=== PATIENT | female | born 1945 | race Two or more races ===

== ENCOUNTER 2022-05-21 16:43 | Outpatient (REF) | payer MEDICARE, MEDICAID, SELFPAY ==
--- NOTE | ~2022-05-21 | CT_ITS ---
EXAMINATION: CT HEAD WITHOUT CONTRAST CLINICAL INFORMATION: 76-year-old with headache and repeated falls. COMPARISON: None TECHNIQUE: Contiguous axial imaging was performed from the skull base to vertex without intravenous administration of contrast. This CT examination was performed using dose optimization techniques as appropriate, variously including the following: *Automated exposure control *Adjustment of mA and/or kV according to patient size (this includes techniques or standardized protocols for targeted exams where dose is matched to indication/reason for exam; i.e. extremities or head) *Use of iterative reconstruction technique DLP: 708 mGy-cm FINDINGS: The brain is normal in morphology and attenuation. Bellamy-white matter differentiation is well maintained. No acute territorial infarct, hemorrhage, extra-axial fluid collection, space-occupying process or mass effect. No definite disproportionate global or regional brain parenchymal volume loss within the limitations of a qualitative assessment. The ventricular system and subarachnoid spaces are within normal limits without hydrocephalus. Bony structures appear intact. The mastoids and middle ear cavities are unopacified and the visualized paranasal sinuses are clear. Minor calcifications of the carotid siphons noted bilaterally. Visualized orbital structures are within normal limits. Partially empty sella, which is a normal variant. Visualized extracranial soft tissue structures appear grossly unremarkable. CT/CT head/brain wo IV con IMPRESSION: Normal noncontrast CT of the brain. No intracranial traumatic sequelae.
== END 2022-05-21 16:44 | disposition home or self-care (01) ==
LOC: HO.CT 16:43
PROVIDERS: PCP Internal Medicine Geriatric Medicine; Visit Provider Internal Medicine Geriatric Medicine
DX: R51.9 Headache, unspecified (principal); R29.6 Repeated falls
CPT/HCPCS: 70450

== ENCOUNTER 2022-08-25 10:05 | Outpatient (REF) | payer OTHER, SELFPAY ==
--- NOTE | 2022-08-25 10:15 | EMG_ITS ---
Please see scanned EMG / Nerve Conduction Report. MTDD
== END 2022-08-25 10:06 | disposition home or self-care (01) ==
LOC: HO.NEURO 10:05
PROVIDERS: PCP Internal Medicine Geriatric Medicine; Visit Provider Internal Medicine Geriatric Medicine
DX: M54.12 Radiculopathy, cervical region (principal); M54.2 Cervicalgia
CPT/HCPCS: 95885; 95910

== ENCOUNTER 2023-01-16 11:10 | Emergency (ER) | payer OTHER, SELFPAY ==
--- NOTE | ~2023-01-16 | CT_ITS ---
EXAMINATION: CT ABDOMEN AND PELVIS WITHOUT CONTRAST CLINICAL INFORMATION: Bilateral flank pain COMPARISON: None available. TECHNIQUE: Multidetector volumetric imaging was performed from the superior aspect of the liver through the pubic symphysis. Sagittal and coronal reformatted images were obtained on the technologist's workstation. This CT examination was performed using dose optimization techniques as appropriate, variously including the following: *Automated exposure control *Adjustment of mA and/or kV according to patient size (this includes techniques or standardized protocols for targeted exams where dose is matched to indication/reason for exam; i.e. extremities or head) *Use of iterative reconstruction technique DLP: 458 mGy-cm FINDINGS: LUNG BASES: The lung bases are clear. The heart size is normal. LIVER, GALLBLADDER, AND BILIARY TREE: The liver is normal in size, shape, and attenuation. No focal hepatic lesion or biliary ductal dilatation is present. The gallbladder has been surgically removed. PANCREAS: Unremarkable. SPLEEN: Unremarkable. ADRENAL GLANDS: Unremarkable. KIDNEYS AND URETERS: The kidneys are normal in size, shape, and attenuation. There is a 3 mm upper pole right kidney and a 3 mm lower pole left renal calculi without caliectasis or hydronephrosis. BLADDER: Unremarkable. GASTROINTESTINAL TRACT: There is diffuse colonic diverticulosis without diverticulitis. There is scattered stool and gas seen as well without distention. The appendix is normal caliber. The small bowel loops are nondistended and appears unremarkable. The stomach is unremarkable. ABDOMINAL WALL: Small umbilical hernia containing fat is noted. LYMPH NODES: Normal. VASCULAR: Unremarkable. PELVIC VISCERA: The uterus is anteverted and appears unremarkable. There is no free fluid. No adnexal mass or abnormal pelvic lymph nodes. OSSEOUS STRUCTURES: No aggressive lytic or sclerotic process seen. CT/CT abdomen pelvis wo IV con IMPRESSION: Diffuse colonic diverticulosis without diverticulitis. Bilateral nonobstructive radiopaque renal calculi. Fleischner guidelines were followed.
[2023-01-16 11:13] VITALS: BP 153/77; PULSE 76; RESP 19; TEMP 36.1; O2SAT 98; BMI 26.6
--- NOTE | 2023-01-16 11:15 | ED.GENADULT ---
HPI - General Adult General Chief complaint: Abdominal Pain Stated complaint: back pain Time Seen by Provider: 01/16/23 11:27 Source: patient and old records reviewed Mode of arrival: ambulatory Limitations: no limitations History of Present Illness HPI narrative: 77 y/o Somali speaking female with no significant medical history presents to the ER for evaluation of 10/10 bilateral flank pain and suprapubic pressure for the last 2 weeks. She states she went to Urgent Care yesterday for the same and was told there was some blood in her urine and that she likely had a kidney stone. She was started on Meloxicam with no improvement. She states she had ongoing bladder pain and low back pain today. She took ibuprofen and came to the ER for further evaluation. She denies nausea, vomiting, diarrhea, fever or chills. She reports increased urinary frequency but denies visible hematuria, dysuria or urgency. She denies history of kidney stone in the past. MD complaint: flank pain Onset (ago): week(s) (2) Location: abdomen Radiation: non-radiation Severity: severe Severity scale (1-10): 10 Quality: aching Pain Consistency: constant Relieving factors: none Exacerbating factors: none Associated symptoms: denies other symptoms Treatments prior to arrival: none Related Data Previous Rx's Medication Instructions Recorded meloxicam 15 mg tablet 15 mg PO DAILY #14 tabs 01/15/23 cefuroxime axetil 250 mg tablet 250 mg PO BID 7 days #14 tabs 01/16/23 Allergies Allergy/AdvReac Type Severity Reaction Status Date / Time No Known Allergies Allergy Verified 01/16/23 11:12 Review of Systems Review of Systems: Yes all other systems are reviewed and are negative [facility] Social History Social History Patient Tobacco Use Status: Never used Tobacco Advance Directives: No Advance Directives Information Provided: Yes Physical Exam ED Vital Signs: Vital Signs - 24 hr 01/16/23 11:13 Temperature 97 F Pulse Rate 76 Respiratory Rate 19 Blood Pressure 153/77 H Pulse Oximetry 98 BMI result Body Mass Index 26.6 Appearance: Alert. Oriented X3. No acute distress. Head: normocephalic, atraumatic. Eyes: Pupils equal, round and reactive to light. ENT: Pharynx normal. No tonsillar swelling or exudate. Neck: Normal inspection. Neck supple. CVS: Normal heart rate and rhythm. Pulses normal. Respiratory: No respiratory distress. Breath sounds normal. Abdomen: Soft with suprapubic tenderness, no rebound or guarding, normal active +BS x4 Back: No CVA tenderness but tenderness to the bilateral lumbar area Skin: Skin warm and dry. Normal skin color. Normal skin turgor. No rashes. Extremities: No lower extremity edema. No joint swelling. Neuro/psych: Oriented X 3. No motor deficit. No sensory deficit. CN II-XII intact. Normal speech and cognition. Course Course Course Narrative: This is an RME: Additional HPI, ROS, PE not included below will be deferred to primary provider. 77-year-old female denies past medical history presents for the evaluation of bilateral flank pain, suprapubic discomfort, patient reports she went to urgent care yesterday was told she had blood in her urine, and they assumed she had a kidney stone, went home on meloxicam, reports she is taking this however pain is not improved. Reports 10/10 bilateral flank pain. Reports that she has increased urination however no dysuria, hesitancy. Patient denies fevers, chills, chest pain, shortness of breath, nausea, vomiting. Physical examination benign. Labs, urine, imaging. Medications Administered Discontinued Medications Generic Name Dose Route Start Last Admin Trade Name Freq PRN Reason Stop Dose Admin Acetaminophen 975 mg 01/16/23 12:00 01/16/23 12:34 Acetaminophen 325 Mg Tablet PO 01/16/23 12:01 975 mg ONCE ONE Administration Sodium Chloride 1,000 mls @ 999 mls/hr 01/16/23 11:15 01/16/23 14:08 Ns IV 01/16/23 12:15 Infused .Q1H1M HELEN Infusion Medical Decision Making Medical Decision Making [facility] Narrative: 77 y/o Somali speaking female with no significant medical history presents to the ER for evaluation of 10/10 bilateral flank pain and suprapubic pressure for the last 2 weeks. Told she had a possible kidney stone yesterday when she was found to have microscopic hematuria. She has no dysuria on examination. She was discharged with NSAIDs with no improvement. She returns today for ongoing symptoms, no improvement with the NSAIDs. Arrival to the ER her vital signs are stable. She has some suprapubic tenderness and lower back tenderness but no CVA tenderness. Her abdomen exam is otherwise benign. She declined morphine and was treated with tylenol with improvement in her pain. Her urinalysis showed microscopic hematuria once again. No evidence of infection. Her CT scan showed intrarenal small stones with no ureteral stones. No hydronephrosis or perinephric stranding. Will treat for acute cystitis given her suprapubic pain and increased urinary frequency. Will have her follow up with Urology to ensure resolution of her microscopic hematuria. Patient is stable for discharge home with trial of oral antibiotics. Differential Diagnosis Differential Diagnoses: The differential diagnosis associated with the presentation includes obstructive kidney stone w/ hydronephrosis, pyelonephritis, UTI, bladder cancer Lab Data MDM Lab Attestation statement: I reviewed the patient's lab results. No leukocytosis, normal renal function 01/16/23 11:43 01/16/23 11:43 Labs: Lab Results 01/16/23 01/16/23 01/16/23 Range/Units 11:43 11:43 12:40 WBC 5.5 (4.8-10.8) X10*3/uL RBC 4.06 L (4.20-5.50) X10*6/uL Hgb 12.1 (12.0-16.0) g/dl Hct 36.2 L (37.0-47.0) % MCV 89.2 (80.0-98.0) fL MCH 29.8 (27.0-33.0) pg MCHC 33.4 (31.0-35.0) g/dl RDW 13.2 (11.0-16.0) % Plt Count 196 (160-400) X10*3/uL MPV 10.5 (9.4-12.3) fL Immature Gran % (Auto) 0.2 (0.0-0.4) % Neut % (Auto) 60.0 (45-73) % Lymph % (Auto) 28.6 (20-40) % [place] % (Auto) 8.2 (2-11) % Eos % (Auto) 2.6 (0-4) % Baso % (Auto) 0.4 (0-2) % Lymph # (Auto) 1.6 (1.2-4.9) X10*3/uL [place] # (Auto) 0.5 (0.1-1.2) X10*3/uL Eos # (Auto) 0.1 (0.0-0.4) X10*3/uL Baso # (Auto) 0.0 (0.0-0.2) X10*3/uL Abs Immat Gran (auto) 0.01 (0.00-0.03) X10*3/uL Absolute Neuts (auto) 3.3 (2.0-8.3) x10*3/uL Absolute Nucleated RBC 0.000 (0.0-0.012) X10*3/uL Nucleated RBC % (auto) 0.0 (0.0-0.2) /100WBC Sodium 139 (135-145) mmol/L Potassium 4.3 (3.3-5.1) mmol/L Chloride 108 (96-108) mmol/L Carbon Dioxide 23 (22-29) mmol/L Anion Gap 12 (12-20) BUN 15 (9-16) mg/dL Creatinine 0.69 (0.5-1.4) mg/dL Estim Creat Clear Calc 64.2 Estimated GFR > 60 Random Glucose 93 (60-115) mg/dL Calcium 10.1 (8.4-10.2) mg/dL Magnesium 1.8 (1.6-2.6) mg/dL Total Bilirubin 1.7 H (0.0-1.0) mg/dL AST 19 (5-31) U/L ALT 15 (0-31) U/L Alkaline Phosphatase 74 (39-117) U/L Total Protein 7.0 (6.5-8.0) g/dL Albumin 4.0 (3.5-5.0) g/dL Urine Color Yellow Urine Appearance Clear Urine pH 6.5 (5.0-9.0) Ur Specific [place] 1.010 (1.005-1.025) Urine Protein Negative (Neg-Trace) mg/dL Urine Glucose (UA) Negative (Negative) mg/dL Urine Ketones Negative (Negative) mg/dL Urine Blood Trace H (Negative) Urine Nitrite Negative (Negative) Ur Leukocyte Esterase Negative (Negative) Urine RBC 6-10 H (0-2) /HPF Urine WBC 0-5 (0-5) /HPF Ur Squamous Epith Cells 0-2 (0-2) /HPF Urine Bacteria None Seen (None Seen) Hyaline Casts 0-2 (0-2) /LPF Independent Interpretation I performed an independent interpretation of an: CT Scan Interpretation: CT scan w/ No ureteral stones appreciated, no hydronephrosis, agree with radiologist read Radiology Impression Discussion of test interpretation with radiology: I have reviewed the radiologist's reading. Radiologist Impression: CT/CT abdomen pelvis wo IV con IMPRESSION: Diffuse colonic diverticulosis without diverticulitis. ? Bilateral nonobstructive radiopaque renal calculi. Independent Historian Clinical information obtained from an independent historian. History obtained from or confirmed by: Friend External Record Review External record reviewed: Outpatient record, Prior outpatient labs and Prior outpatient radiology Prescription Management I considered prescription management with: Pain Medication and Antibiotic Critical Care Time Critical Care Time Critical Care Time: No Discharge Plan Discharge Clinical Impression: Cystitis, Microscopic hematuria Patient Disposition: Home, Self-Care Instructions: Interstitial Cystitis (ED) Additional Instructions: Your urine test showed a small amount of blood. Your CT scan showed no kidney stones to be causing your pain. Take the prescribed antibiotic to help treat bladder inflammation. Recommend following up with a Urologist along with your Primary Care Provider. Rest and drink plenty of fluids. Continue ibuprofen or tylenol as needed for pain. If you develop new or worsening symptoms call 911 or come back to the ER for further evaluation. [place] an?lisis de orina mostr? michael odell?a cantidad de fern. Dixon tomograf?a computarizada no mostr? c?lculos renales que le causaran dolor. [place] el antibi?sarah recetado para ayudar a tratar la inflamaci?n de la vejiga. Recomiende el seguimiento con un ur?logo junto con dixon proveedor de atenci?n primaria. Descanse y vesna muchos l?quidos. Contin?e con ibuprofeno o tylenol seg?n sea necesario para el dolor. Si desarrolla s?ntomas nuevos o que empeoran, llame al 911 o regrese a la dorcas de emergencias para michael evaluaci?n adicional. Prescriptions: New cefuroxime axetil 250 mg tablet 250 mg PO BID 7 Days Qty: 14 0RF No Action meloxicam 15 mg tablet 15 mg PO DAILY Qty: 14 0RF Referrals: [facility] [Provider Group] (microscopic hematuria) Name,MD Joo [Primary Care Provider] - Print Language: Somali
[2023-01-16 11:50] LABS: Basophils Percent Auto 0.4 % (0-2); Eosinophils Absolute Auto 0.1 X10*3/uL (0.0-0.4); Eosinophils Percent Auto 2.6 % (0-4); Hematocrit 36.2 % (37.0-47.0); Hemoglobin 12.1 g/dl (12.0-16.0); Imm Gran Abs Auto 0.01 X10*3/uL (0.00-0.03); Imm Gran Pct Auto 0.2 % (0.0-0.4); Lymphocytes Absolute Auto 1.6 X10*3/uL (1.2-4.9); Lymphocytes Percent Auto 28.6 % (20-40); MANUAL DIFF FLAG NO; Mean Corpuscular HGB Conc 33.4 g/dl (31.0-35.0); Mean Corpuscular Hemoglobin 29.8 pg (27.0-33.0); Mean Corpuscular Volume 89.2 fL (80.0-98.0); Mean Platelet Volume 10.5 fL (9.4-12.3); Monocytes Absolute Auto 0.5 X10*3/uL (0.1-1.2); Monocytes Percent Auto 8.2 % (2-11); Neutrophils Absolute Auto 3.3 x10*3/uL (2.0-8.3); Platelet Count 196 X10*3/uL (160-400); Red Blood Count 4.06 X10*6/uL (4.20-5.50); Red Cell Distribution Width 13.2 % (11.0-16.0); White Blood Count 5.5 X10*3/uL (4.8-10.8)
[2023-01-16] MEDS: 0.9 % Sodium Chloride 1,000 ML 999 ML IV (11:55)
[2023-01-16 12:14] LABS: Alanine Aminotransferase 15 U/L (0-31); Alkaline Phosphatase 74 U/L (39-117); Anion Gap 12 (12-20); Aspartate Amino Transferase 19 U/L (5-31); Bilirubin Total 1.7 mg/dL (0.0-1.0); Blood Urea Nitrogen 15 mg/dL (9-16); Calcium 10.1 mg/dL (8.4-10.2); Carbon Dioxide 23 mmol/L (22-29); Chloride 108 mmol/L (96-108); Creatinine Clr Calc Pharmacy 64.2; Estimated Glomerular Filt Rate > 60; Glucose Random 93 mg/dL (60-115); Magnesium 1.8 mg/dL (1.6-2.6); Potassium 4.3 mmol/L (3.3-5.1); Sodium 139 mmol/L (135-145)
[2023-01-16] MEDS: Acetaminophen 325 MG TABLET 975 MG PO (12:34)
[2023-01-16 12:56] LABS: Appearance Urine Clear; Color Urine Yellow; Glucose Urine UA Negative (Negative); Leukocyte Esterase Urine Negative (Negative); Nitrite Urine Negative (Negative); PH 6.5 (5.0-9.0); UMIC TRIGGER UACC YES; Urine Blood Trace (Negative); Urine Ketones Negative (Negative); Urine Protein Negative (Neg-Trace)
[2023-01-16 13:04] LABS: Bacteria Urine None Seen (None Seen); Hyaline Casts Urine 0-2 /LPF (0-2); Squamous Epithelial Cell Urine 0-2 /HPF (0-2); WBC Urine 0-5 /HPF (0-5)
== END 2023-01-16 14:27 | disposition home or self-care (01) ==
PROVIDERS: Physician Assistant; Emergency Provider Student in an Organized Health Care Education/Training Program; PCP Internal Medicine Geriatric Medicine
DX: N30.81 Other cystitis with hematuria (principal); M54.50 Low back pain, unspecified
CPT/HCPCS: 36415; 74176; 80053; 81001; 81003; 83735; 85025; 96360; 96361; 99283; 99284

== ENCOUNTER → 2023-03-18 13:00 | Outpatient (BNV) | payer OTHER, SELFPAY | PROVIDERS: PCP Internal Medicine Geriatric Medicine; Visit Provider Radiology Diagnostic Radiology | DX: M81.0 Age-related osteoporosis without current pathological fracture (principal); M85.89 Other specified disorders of bone density and structure, multiple sites | CPT/HCPCS: 77080 ==

== ENCOUNTER 2023-03-18 13:11 | Outpatient (REF) | payer OTHER, SELFPAY ==
--- NOTE | ~2023-03-18 | MM_ITS ---
EXAMINATION: BONE DENSITOMETRY CLINICAL INDICATION: Osteoporosis. COMPARISON: Previous BD dated 06/26/2019 and baseline BD dated 06/16/2017. TECHNIQUE: Using a [employer] DXA System (software version: 13.1) manufactured by [employer], dual-energy x-ray absorptiometry was performed of the lumbar spine and left hip. The images are of good technical quality. Summary results are attached. FINDINGS: LEFT FEMUR, NECK: Current: BMD 0.696 g/cm2, Z-score -0.6, T-score -2.5, osteoporosis. Prior: BMD 0.617 g/cm2. Baseline: BMD 0.597 g/cm2. LEFT FEMUR, TOTAL: Current: BMD 0.797 g/cm2, Z-score 0.0, T-score -1.7, osteopenia, 17.2% increase from previous, 15.3% decrease from baseline (<5% change is not significant). Prior: BMD 0.680 g/cm2. Baseline: BMD 0.691 g/cm2. AP SPINE L1-L4: Current: BMD 0.939 g/cm2, Z-score -0.4, T-score -2.0, osteopenia, 6.0% decrease from previous, 0.6% decrease from baseline (<5% change is not significant). Prior: BMD 0.999 g/cm2. Baseline: BMD 0.945 g/cm2. IDENTIFIED RISK FACTORS: Menopause. HISTORY OF FRACTURE: None listed. MEDICATIONS: Calcium, vitamin D. MM/XR DEXA axial skeleton IMPRESSION: 1. DIAGNOSIS: Osteoporosis based on the lowest T-score value of -2.5 in the lumbar spine applying World Health Organization criteria. 2. 10-YEAR FRACTURE RISK PREDICTION, FRAX: According to the guidelines, FRAX calculation should only be performed on patients in the osteopenia bone density category. Therefore, FRAX was not performed on this patient. 3. Treatment Recommendations: NOF guidelines recommend consideration for treatment in postmenopausal women and men age 50 and older presenting with the following: -A hip or vertebral (clinical or morphometric) fracture. -T-score less than or equal to -2.5 at the femoral neck or spine after appropriate evaluation to exclude secondary causes. -Low bone mass at the hip or spine and a 10-year fracture probability by FRAX of greater than or equal to 3% for hip fracture or greater than or equal to 20% for major osteoporotic fracture based on the [place] adapted WHO algorithm. 4. Other Recommendations: All treatment decisions require clinical judgment and consideration of individual patient factors, including patient preferences, comorbidities, previous drug use, risk factors not captured in the FRAX model (e.g. frailty, falls, vitamin D deficiency, increased bone turnover, interval significant decline in bone density) and possible under or overestimation of fracture risk by FRAX. Additional medical evaluation for secondary cause of low bone mineral density may be appropriate. FUTURE SCAN RECOMMENDATION: People with diagnosed cases of osteoporosis or at high risk for fracture should have regular bone mineral density tests. For patients eligible for Medicare, routine testing is allowed once every 2 years. The testing frequency can be increased to one year for patients who have rapidly progressing disease, those who are receiving or discontinuing medical therapy to restore bone mass, or have additional risk factors.
== END 2023-03-18 13:12 | disposition home or self-care (01) ==
LOC: HO.MAMMO 13:11
PROVIDERS: PCP Internal Medicine Geriatric Medicine; Visit Provider Internal Medicine Geriatric Medicine
DX: Z13.820 Encounter for screening for osteoporosis (principal); Z78.0 Asymptomatic menopausal state; M81.0 Age-related osteoporosis without current pathological fracture
CPT/HCPCS: 77080

== ENCOUNTER 2023-04-25 13:59 | Outpatient (AMB) | payer OTHER, SELFPAY ==
--- NOTE | 2023-04-25 14:01 | MHC.OFFVIS ---
Intake Intake Visit Reasons: Renal stones Intake Note: NEW Patient presents today to established treatment for Renal Stones: Meds- None Allergies to Antibiotic- No Known Allergies Blood Thinner- None Moisture Machine Tender Required: No Accompanied by: Sister Allergies No Known Allergies Allergy (Verified 04/25/23 14:10) HPI HPI Comments History of Present Illness Details Nayeli is a 77-year-old female who presents today to the office to establish as a new patient for an evaluation of?renal stones. 04/25/2023? She is present today to establish as a new patient for an evaluation of?renal stones. The patient is a Slovak speaking female. Her sister interpreted during the visit. She states that in December she had back pain and blood in her urine, and was told she likely passed a kidney stone. Currently she is asymptomatic. I reviewed the CT of the abdomen/pelvis results from 01/16/2023 revealed 3 mm upper pole right kidney and a 3 mm lower pole left renal calculi without caliectasis or hydronephrosis. Diet sheet for renal calculi prevention was provided to the patient. Discussed to reduce sodium intake. Discussed to consume adequate amount of water. Discussed Low oxalate diet---green leafy vegetable, nuts, and tea in moderation as they are rich in oxalate. Plan: Ordered 24-hour urine collection, serum Ca and serum PTH Follow-up in 3 months. [facility] Surgical History No pertinent past surgical history Family History Father No problems noted. Mother No problems noted. Social History Alcohol intake: current Alcohol intake frequency: does not drink Patient Tobacco Use Status: Never used Tobacco Review of Systems Const All systems reviewed & are unremarkable except as noted in HPI and below Reports no additional complaints Eyes Reports no additional complaints ENT Reports no additional complaints Card Denies dyspnea Resp Denies cough and Denies dyspnea GI Reports no additional complaints Reports no additional complaints Musc Reports no additional complaints Skin/Breast Denies rash and Denies unusual bruising Neuro Reports no additional complaints Psych Reports no additional complaints Endo Reports no additional complaints Sai/Lymph Reports no additional complaints Aller/Immun Reports no additional complaints Physical Exam Const General: cooperative, healthy appearing and no acute distress Orientation/consciousness: patient oriented x3 HEENT Head: Yes normal to inspection, Yes normocephalic and Yes atraumatic Eyes Conjunctivae: conjunctivae normal Neck Neck: Yes normal visual inspection and Yes trachea midline Chest Chest palpation & inspection: normal inspection of the chest Resp Effort & Inspection: normal respiratory effort Cardio Rate: regular rate GI Inspection: Yes normal to inspection Skin General skin exam: no rashes or lesions noted Neuro General: patient oriented x3 Extrem General: No edema Psych Appearance: grossly normal Results AMB Urinalysis, Automated UA Leukoctes 0 Darren/uL Last Edit by Candelaria Gonzales Bladimir on 04/25/23 14:12 UA Nitrite Negative Last Edit by Candelaria Gonzales Bladimir on 04/25/23 14:12 UA Urobilinogen 0.2 mg/dL Last Edit by Candelaria Gonzales [facility] on 04/25/23 14:12 UA Protein 0 mg/dL Last Edit by Candelaria Gonzales [facility] on 04/25/23 14:12 UA pH 7.0 Last Edit by Candelaria Gonzales [facility] on 04/25/23 14:12 UA Blood 25 Moose/uL Last Edit by Candelaria Gonzales [facility] on 04/25/23 14:12 1+ Candelaria Gonzales 04/25/23 14:12 UA Specific [place] 1.015 Last Edit by Candelaria Gonzales [facility] on 04/25/23 14:12 UA Ketone Negative Last Edit by Candelaria Gonzales Bladimir on 04/25/23 14:12 UA Bilirubin 0 mg/dL Last Edit by Candelaria Gonzales [facility] on 04/25/23 14:12 UA Glucose 0 mg/dL Last Edit by Candelaria Gonzales [facility] on 04/25/23 14:12 Results Reviewed Results Reviewed: Laboratory Last Values Urine pH (Auto) 7.0 04/25/23 14:11 Specific [place] (Auto) 1.015 04/25/23 14:11 Urine Protein (Auto) 0 mg/dL 04/25/23 14:11 Glucose (UA)(Auto) 0 mg/dL 04/25/23 14:11 Urine Ketones (Auto) Negative 04/25/23 14:11 Urine Blood (Auto) 25 Moose/uL 04/25/23 14:11 Urine Nitrite (Auto) Negative 04/25/23 14:11 Urine Bilirubin (Auto) 0 mg/dL 04/25/23 14:11 Urine Urobilinogen (Auto) 0.2 mg/dL 04/25/23 14:11 Leukocyte Esterase (Auto) 0 Darren/uL 04/25/23 14:11 Date of Service: 01/16/23 EXAMINATION: CT ABDOMEN AND PELVIS WITHOUT CONTRAST?? CLINICAL INFORMATION: Bilateral flank pain?? COMPARISON: None available. FINDINGS: LUNG BASES: The lung bases are clear. The heart size is normal.?? LIVER, GALLBLADDER, AND BILIARY TREE: The liver is normal in size, shape, and attenuation. No focal hepatic lesion or biliary ductal dilatation is present. The gallbladder has been surgically removed.?? PANCREAS: Unremarkable.?? SPLEEN: Unremarkable.?? ADRENAL GLANDS: Unremarkable.?? KIDNEYS AND URETERS: The kidneys are normal in size, shape, and attenuation. There is a 3 mm upper pole right kidney and a 3 mm lower pole left renal calculi without caliectasis or hydronephrosis.?? BLADDER: Unremarkable.?? GASTROINTESTINAL TRACT: There is diffuse colonic diverticulosis without diverticulitis. There is scattered stool and gas seen as well without distention. The appendix is normal caliber. The small bowel loops are nondistended and appears unremarkable. The stomach is unremarkable.?? ABDOMINAL WALL: Small umbilical hernia containing fat is noted.?? LYMPH NODES: Normal. VASCULAR: Unremarkable. PELVIC VISCERA: The uterus is anteverted and appears unremarkable. There is no free fluid. No adnexal mass or abnormal pelvic lymph nodes. OSSEOUS STRUCTURES: No aggressive lytic or sclerotic process seen.?? IMPRESSION: Diffuse colonic diverticulosis without diverticulitis. Bilateral nonobstructive radiopaque renal calculi Assessment & Plan Assessment & Plan (1) Bilateral kidney stones: Code(s): N20.0 - Calculus of kidney (2) Hematuria: Code(s): R31.9 - Hematuria, unspecified Plan Ordered 24-hour urine collection, serum Ca and serum PTH Follow-up in 3 months. Orders: Orders Calcium Today N20.0 - Calculus of kidney Parathyroid Hormone Related Pr Today N20.0 - Calculus of kidney AMB Urinalysis Automated Today Z13.9 - Encounter for screening, unspecified Medications: New pyridoxine (vitamin B6) 100 mg PO DAILY 90 tabs 3RF Patient Instructions: The patient had an opportunity to ask questions regarding treatment plan. All questions were answered. Imaging, Laboratory studies and physical exam results were discussed and reviewed in detail. No major barriers to understanding were identified. The patient expressed understanding and agreement with the above treatment plan.? ? ? The patient is aware they should contact our office by phone for worsening of their current condition or the appearance of new symptoms. Compliance is encouraged with any medications and followup testing that is ordered.? ? ? It is a privilege to be allowed the opportunity to participate in the urologic care of your patient. If you have any questions or concerns regarding treatment for the above conditions please do not hesitate to contact me. The office telephone contact is [phone].? ? ? This note is constructed in part using voice recognition software. While every effort has been made to ensure accuracy medical transcriptionist errors may have been included.? ? ? Yours sincerely,? ? ? Mitzy Sutton MD? Coding Level of Care Code New Pt Level 4 (26191) Diagnoses Bilateral kidney stones N20.0 Hematuria R31.9
== END 2023-04-25 14:23 | disposition home or self-care (01) ==
LOC: HO.HUSH 13:59
PROVIDERS: PCP Internal Medicine Geriatric Medicine; Visit Provider Urology
DX: N20.0 Calculus of kidney (principal); R31.9 Hematuria, unspecified; Z13.9 Encounter for screening, unspecified
CPT/HCPCS: 99204

== ENCOUNTER → 2023-04-25 13:59 | Outpatient (BNVA) | payer OTHER, SELFPAY | PROVIDERS: PCP Internal Medicine Geriatric Medicine; Visit Provider Urology | DX: N20.0 Calculus of kidney (principal); R31.9 Hematuria, unspecified | CPT/HCPCS: 81003 ==

== ENCOUNTER 2023-04-26 09:12 | Outpatient (REF) | payer OTHER, SELFPAY ==
[2023-04-26 12:44] LABS: Calcium 10.1 mg/dL (8.4-10.2)
[2023-05-03 18:08] LABS: Parathyroid Hormone Related Pr 13 pg/mL (11-20)
== END 2023-04-26 09:13 | disposition home or self-care (01) ==
LOC: HO.LAB 09:12
PROVIDERS: PCP Internal Medicine Geriatric Medicine; Visit Provider Urology
DX: N20.0 Calculus of kidney (principal)
CPT/HCPCS: 36415; 82310; 83519

== ENCOUNTER 2023-06-06 16:33 | Outpatient (REF) | payer OTHER, SELFPAY ==
[2023-06-06 18:08] LABS: Anion Gap 10 (12-20); Blood Urea Nitrogen 14 mg/dL (9-16); Calcium 10.3 mg/dL (8.4-10.2); Carbon Dioxide 28 mmol/L (22-29); Chloride 106 mmol/L (96-108); Estimated Glomerular Filt Rate > 60; Glucose Random 89 mg/dL (60-115); Potassium 3.7 mmol/L (3.3-5.1); Sodium 140 mmol/L (135-145)
== END 2023-06-06 16:34 | disposition home or self-care (01) ==
LOC: HO.HHCL 16:33
PROVIDERS: Visit Provider Internal Medicine Geriatric Medicine
DX: I10 Essential (primary) hypertension (principal); N20.0 Calculus of kidney
CPT/HCPCS: 36415; 80048

== ENCOUNTER 2023-08-29 13:38 | Outpatient (AMB) | payer OTHER, SELFPAY ==
--- NOTE | 2023-08-29 13:43 | MHC.OFFVIS ---
Intake Intake Visit Reasons: 3m/labs/litholink Intake Note: Patient presents today to established treatment for Renal Stones: Meds- Vitamin B6 Allergies to Antibiotic- No Known Allergies Blood Thinner- None Title One Reading Teacher Required: No Accompanied by: Sister Allergies No Known Allergies Allergy (Verified 08/29/23 13:44) Medication List - Last Reconciled 08/29/23 by Mitzy Sutton MD atorvastatin 20 mg PO DAILY cholecalciferol (vitamin D3) 25 mcg PO DAILY docusate sodium 100 mg PO DAILY inulin (Fiber Gummies) grams PO lisinopril 20 mg PO DAILY melatonin 5 mg PO BEDTIME pyridoxine (vitamin B6) 100 mg PO DAILY HPI HPI Comments History of Present Illness Details Nayeli is a 77-year-old female who presents today to the office follow up for renal stones. 08/29/23--here for fu to review labs: Discussed 24 hour urine results: Total volume 2.12 mL, Calcium 239 mg; Oxalate 26 mg, Sodium 180, Citrate 757 mg. Instructed on importance of fluid intake, low sodium diet, cont Vit B6 100 mg . Review of chart: 04/25/2023? She is present today to establish as a new patient for an evaluation of?renal stones. The patient is a Croatian speaking female. Her sister interpreted during the visit. She states that in December she had back pain and blood in her urine, and was told she likely passed a kidney stone. Currently she is asymptomatic. I reviewed the CT of the abdomen/pelvis results from 01/16/2023 revealed 3 mm upper pole right kidney and a 3 mm lower pole left renal calculi without caliectasis or hydronephrosis. Diet sheet for renal calculi prevention was provided to the patient. Discussed to reduce sodium intake. Discussed to consume adequate amount of water. Discussed Low oxalate diet---green leafy vegetable, nuts, and tea in moderation as they are rich in oxalate. Plan-Ordered 24-hour urine collection, serum Ca and serum PTH. Follow-up in 3 months. 08/29/2023--PLAN: Continue vitamin B6 100 mg Monitor kidneys, follow-up with renal ultrasound. [facility] Surgical History No pertinent past surgical history Family History Father No problems noted. Mother No problems noted. Social History Alcohol intake: current Alcohol intake frequency: does not drink Patient Tobacco Use Status: Never used Tobacco Review of Systems Const All systems reviewed & are unremarkable except as noted in HPI and below Reports no additional complaints Eyes Reports no additional complaints ENT Reports no additional complaints Card Denies dyspnea Resp Denies cough and Denies dyspnea GI Reports no additional complaints Reports no additional complaints Musc Reports no additional complaints Skin/Breast Denies rash and Denies unusual bruising Neuro Reports no additional complaints Psych Reports no additional complaints Endo Reports no additional complaints Sai/Lymph Reports no additional complaints Aller/Immun Reports no additional complaints Results AMB Urinalysis, Automated UA Leukoctes 0 Darren/uL Last Edit by Candelaria Gonzales Bladimir on 08/29/23 13:50 UA Nitrite Negative Last Edit by Candelaria Gonzales [facility] on 08/29/23 13:50 UA Urobilinogen 0.2 mg/dL Last Edit by Candelaria Gonzales [facility] on 08/29/23 13:50 UA Protein 15 mg/dL Last Edit by Candelaria Gonzales [facility] on 08/29/23 13:50 UA pH 7.0 Last Edit by Candelaria Gonzales [facility] on 08/29/23 13:50 UA Blood 80 Moose/uL Last Edit by Candelaria Gonzales [facility] on 08/29/23 13:50 2+ Candelaria Gonzales 08/29/23 13:[address] [place] 1.015 Last Edit by Candelaria Gonzales [facility] on 08/29/23 13:50 UA Ketone Negative Last Edit by Candelaria Gonzales Bladimir on 08/29/23 13:50 UA Bilirubin 0 mg/dL Last Edit by Candelaria Gonzales [facility] on 08/29/23 13:50 UA Glucose 0 mg/dL Last Edit by Candelaria Gonzales [facility] on 08/29/23 13:50 Results Reviewed Results Reviewed: Laboratory Last Values Urine pH (Auto) 7.0 08/29/23 13:[address] [place] (Auto) 1.015 08/29/23 13:44 Urine Protein (Auto) 15 mg/dL 08/29/23 13:44 Glucose (UA)(Auto) 0 mg/dL 08/29/23 13:44 Urine Ketones (Auto) Negative 08/29/23 13:44 Urine Blood (Auto) 80 Moose/uL 08/29/23 13:44 Urine Nitrite (Auto) Negative 08/29/23 13:44 Urine Bilirubin (Auto) 0 mg/dL 08/29/23 13:44 Urine Urobilinogen (Auto) 0.2 mg/dL 08/29/23 13:44 Leukocyte Esterase (Auto) 0 Darren/uL 08/29/23 13:44 Assessment & Plan Assessment & Plan (1) Bilateral kidney stones: Code(s): N20.0 - Calculus of kidney Plan Continue vitamin B6 100 mg Monitor kidneys, follow-up with renal ultrasound. Orders: Orders US renal BI 4 Months N20.0 - Calculus of kidney AMB Urinalysis Automated 08/29/23 Z13.9 - Encounter for screening, unspecified Medications: Refilled pyridoxine (vitamin B6) 100 mg PO DAILY 90 tabs 3RF Patient Instructions: The patient had an opportunity to ask questions regarding treatment plan. All questions were answered. Imaging, Laboratory studies and physical exam results were discussed and reviewed in detail. No major barriers to understanding were identified. The patient expressed understanding and agreement with the above treatment plan. The patient is aware they should contact our office by phone for worsening of their current condition or the appearance of new symptoms. Compliance is encouraged with any medications and followup testing that is ordered. It is a privilege to be allowed the opportunity to participate in the urologic care of your patient. If you have any questions or concerns regarding treatment for the above conditions please do not hesitate to contact me. The office telephone contact is [phone]. This note is constructed in part using voice recognition software. While every effort has been made to ensure accuracy wage adjuster errors may have been included. Yours sincerely, Mitzy Sutton MD Coding Level of Care Code Est Pt Level 3 (31435) Diagnoses Bilateral kidney stones N20.0
== END 2023-08-29 14:35 | disposition home or self-care (01) ==
PROVIDERS: PCP Internal Medicine Geriatric Medicine; Visit Provider Urology
DX: N20.0 Calculus of kidney (principal)
CPT/HCPCS: 99213

== ENCOUNTER → 2023-08-29 13:38 | Outpatient (BNVA) | payer OTHER, SELFPAY | PROVIDERS: PCP Internal Medicine Geriatric Medicine; Visit Provider Urology | DX: N20.0 Calculus of kidney (principal) | CPT/HCPCS: 81003; 99212 ==

== ENCOUNTER 2023-10-31 10:35 | Outpatient (REF) | payer OTHER, SELFPAY ==
[2023-11-02 23:13] LABS: TS Negative Control Passed; TS Panel A 1; TS Panel B 0; TS Positive Control Passed; TSpotTB Negative (Negative)
== END 2023-10-31 10:36 | disposition home or self-care (01) ==
LOC: HO.HHCL 10:35
PROVIDERS: Visit Provider Internal Medicine Geriatric Medicine
DX: Z11.1 Encounter for screening for respiratory tuberculosis (principal)
CPT/HCPCS: 36415; 86481

== ENCOUNTER 2024-01-09 10:25 | Outpatient (REF) | payer OTHER, SELFPAY ==
--- NOTE | ~2024-01-09 | US_ITS ---
EXAMINATION: US RETROPERITONEAL LIMITED (RENAL ONLY) CLINICAL INFORMATION: Calculus of kidney. COMPARISON: CT abdomen and pelvis 01/16/2023. TECHNIQUE: Real-time imaging of the kidneys. Limited visualization due to bowel gas. FINDINGS: RIGHT KIDNEY: 9.4 x 5.2 x 4.9 cm (SAG x AP x TRV). No hydronephrosis. No renal calculi. Renal cortical thickness is normal. Limited visualization. 1.4 cm upper pole pole cyst with benign features. There is no indication for follow-up imaging. LEFT KIDNEY: 10.0 x 5.1 x 4.2 cm (SAG x AP x TRV). No hydronephrosis. No renal calculi. Renal cortical thickness is normal. Limited visualization. A 1.1 cm interpolar pole cyst with benign features. There is no indication for follow-up imaging. US/US renal BI IMPRESSION: No hydronephrosis. No renal calculi.
== END 2024-01-09 10:26 | disposition home or self-care (01) ==
LOC: HO.US 10:25
PROVIDERS: PCP Internal Medicine Geriatric Medicine; Visit Provider Urology
DX: N20.0 Calculus of kidney (principal)
CPT/HCPCS: 76775

== ENCOUNTER 2024-01-23 08:13 | Outpatient (REF) | payer OTHER, SELFPAY ==
[2024-01-23 13:37] LABS: Alanine Aminotransferase 24 U/L (0-31); Albumin Level 4.2 g/dL (3.5-5.0); Alkaline Phosphatase 75 U/L (39-117); Anion Gap 14 (12-20); Aspartate Amino Transferase 25 U/L (5-31); Bilirubin Total 1.3 mg/dL (0.0-1.0); Blood Urea Nitrogen 15 mg/dL (9-16); Calcium 9.8 mg/dL (8.4-10.2); Carbon Dioxide 28 mmol/L (22-29); Chloride 106 mmol/L (96-108); Cholesterol 165 mg/dL (<200); Estimated Glomerular Filt Rate > 60; Glucose Random 75 mg/dL (60-115); HDL Cholesterol 60 mg/dL (>40); LDL Cholesterol Calculated 92 mg/dL (<100); Potassium 4.1 mmol/L (3.3-5.1); Sodium 144 mmol/L (135-145); Total Protein 6.9 g/dL (6.5-8.0); Triglycerides 65 mg/dL (<150)
[2024-01-23 13:49] LABS: ~HepC Num1 0.09 S/CO (0.00-0.79); ~Hepatitis C Antibody Nonreactive (Nonreactive)
== END 2024-01-23 08:14 | disposition home or self-care (01) ==
LOC: HO.CHCLDS 08:13
PROVIDERS: Visit Provider Internal Medicine Geriatric Medicine
DX: I10 Essential (primary) hypertension (principal); Z11.59 Encounter for screening for other viral diseases; E78.2 Mixed hyperlipidemia
CPT/HCPCS: 36415; 80053; 80061; 86803

== ENCOUNTER 2024-02-27 13:32 | Outpatient (AMB) | payer OTHER, SELFPAY ==
--- NOTE | 2024-02-27 13:33 | MHC.OFFVIS ---
Intake Visit Reasons: 6m f/u ultrasound(set) Intake Note: Patient presents today for 6m f/u ultrasound Meds- Vitamin B6 Allergies to Antibiotic- No Known Allergies Blood Thinner- None Health Teacher Required: No Accompanied by: Sister Allergies No Known Allergies Allergy (Verified 02/27/24 13:34) HPI Comments Details: 02/27/24--Nayeli is a 78-year-old female who presents today to the office follow up for renal stones. She states she has been doing well she did have some flank pain several weeks ago which went away. Last year CT scan noted 2 small stones 1 in each kidney. I have reviewed recent kidney ultrasound which is within normal limits no kidney stones visualized. She is encouraged to continue drinking adequate water and adding lemon to the water as well as continue vitamin B6. Will continue to monitor kidneys follow-up in 1 year. Review of chart: 08/29/23--here for fu to review labs: Discussed 24 hour urine results: Total volume 2.12 mL, Calcium 239 mg; Oxalate 26 mg, Sodium 180, Citrate 757 mg. Instructed on importance of fluid intake, low sodium diet, cont Vit B6 100 mg . 04/25/2023? She is present today to establish as a new patient for an evaluation of?renal stones. The patient is a Sinhala speaking female. Her sister interpreted during the visit. She states that in December she had back pain and blood in her urine, and was told she likely passed a kidney stone. Currently she is asymptomatic. I reviewed the CT of the abdomen/pelvis results from 01/16/2023 revealed 3 mm upper pole right kidney and a 3 mm lower pole left renal calculi without caliectasis or hydronephrosis. Diet sheet for renal calculi prevention was provided to the patient. Discussed to reduce sodium intake. Discussed to consume adequate amount of water. Discussed Low oxalate diet---green leafy vegetable, nuts, and tea in moderation as they are rich in oxalate. Plan-Ordered 24-hour urine collection, serum Ca and serum PTH. Follow-up in 3 months. [facility] Surgical History No pertinent past surgical history Family History Father No problems noted. Mother No problems noted. Social History Alcohol intake: current Alcohol intake frequency: does not drink Patient Tobacco Use Status: Never used Tobacco Review of Systems Const All systems reviewed & are unremarkable except as noted in HPI and below Reports no additional complaints Eyes Reports no additional complaints ENT Reports no additional complaints Card Reports no additional complaints Resp Reports no additional complaints GI Reports no additional complaints Reports as per HPI Musc Reports no additional complaints Skin/Breast Reports system reviewed and no additional complaints, except as documented Neuro Reports no additional complaints Psych Reports no additional complaints Endo Reports no additional complaints Sai/Lymph Reports no additional complaints Aller/Immun Reports no additional complaints Results AMB Urinalysis, Automated UA Leukoctes 0 Darren/uL Last Edit by KING Rivera on 02/27/24 13:50 UA Nitrite Negative Last Edit by Kamar Hedrick CCM on 02/27/24 13:50 UA Urobilinogen 0.2 mg/dL Last Edit by Kamar Hedrick CCM on 02/27/24 13:50 UA Protein 0 mg/dL Last Edit by Kamar Hedrick [facility] on 02/27/24 13:50 UA pH 7.0 Last Edit by Kamar Hedrick CCM on 02/27/24 13:50 UA Blood 25 Moose/uL Last Edit by Kamar Hedrick [facility] on 02/27/24 13:50 UA Specific [place] 1.005 Last Edit by Kamar Hedrick CCM on 02/27/24 13:50 UA Ketone Negative Last Edit by Kamar Hedrick CCM on 02/27/24 13:50 UA Bilirubin 0 mg/dL Last Edit by Kamar Hedrick [facility] on 02/27/24 13:50 UA Glucose 0 mg/dL Last Edit by Kamar Hedrick [facility] on 02/27/24 13:50 Results Reviewed Results Reviewed: Laboratory Last Values Urine pH (Auto) 7.0 02/27/24 13:48 Specific [place] (Auto) 1.005 02/27/24 13:48 Urine Protein (Auto) 0 mg/dL 02/27/24 13:48 Glucose (UA)(Auto) 0 mg/dL 02/27/24 13:48 Urine Ketones (Auto) Negative 02/27/24 13:48 Urine Blood (Auto) 25 Moose/uL 02/27/24 13:48 Urine Nitrite (Auto) Negative 02/27/24 13:48 Urine Bilirubin (Auto) 0 mg/dL 02/27/24 13:48 Urine Urobilinogen (Auto) 0.2 mg/dL 02/27/24 13:48 Leukocyte Esterase (Auto) 0 Darren/uL 02/27/24 13:48 Date of Service: 01/09/24 US RETROPERITONEAL LIMITED (RENAL ONLY) CLINICAL INFORMATION: Calculus of kidney. COMPARISON: CT abdomen and pelvis 01/16/2023. TECHNIQUE: Real-time imaging of the kidneys. Limited visualization due to bowel gas. FINDINGS: RIGHT KIDNEY: 9.4 x 5.2 x 4.9 cm (SAG x AP x TRV). No hydronephrosis. No renal calculi. Renal cortical thickness is normal. Limited visualization. 1.4 cm upper pole pole cyst with benign features. There is no indication for follow-up imaging. LEFT KIDNEY: 10.0 x 5.1 x 4.2 cm (SAG x AP x TRV). No hydronephrosis. No renal calculi. Renal cortical thickness is normal. Limited visualization. A 1.1 cm interpolar pole cyst with benign features. There is no indication for follow-up imaging. IMPRESSION: No hydronephrosis. No renal calculi. Date of Service: 01/16/23 EXAMINATION: CT ABDOMEN AND PELVIS WITHOUT CONTRAST?? CLINICAL INFORMATION: Bilateral flank pain?? COMPARISON: None available. FINDINGS: LUNG BASES: The lung bases are clear. The heart size is normal.?? LIVER, GALLBLADDER, AND BILIARY TREE: The liver is normal in size, shape, and attenuation. No focal hepatic lesion or biliary ductal dilatation is present. The gallbladder has been surgically removed.?? PANCREAS: Unremarkable.?? SPLEEN: Unremarkable.?? ADRENAL GLANDS: Unremarkable.?? KIDNEYS AND URETERS: The kidneys are normal in size, shape, and attenuation. There is a 3 mm upper pole right kidney and a 3 mm lower pole left renal calculi without caliectasis or hydronephrosis.?? BLADDER: Unremarkable.?? GASTROINTESTINAL TRACT: There is diffuse colonic diverticulosis without diverticulitis. There is scattered stool and gas seen as well without distention. The appendix is normal caliber. The small bowel loops are nondistended and appears unremarkable. The stomach is unremarkable.?? ABDOMINAL WALL: Small umbilical hernia containing fat is noted.?? LYMPH NODES: Normal. VASCULAR: Unremarkable. PELVIC VISCERA: The uterus is anteverted and appears unremarkable. There is no free fluid. No adnexal mass or abnormal pelvic lymph nodes. OSSEOUS STRUCTURES: No aggressive lytic or sclerotic process seen.?? IMPRESSION: Diffuse colonic diverticulosis without diverticulitis. Bilateral nonobstructive radiopaque renal calculi Assessment & Plan Assessment & Plan (1) Bilateral kidney stones: Code(s): N20.0 - Calculus of kidney Category: Medical Plan I have reviewed recent kidney ultrasound which is within normal limits no kidney stones visualized. She is encouraged to continue drinking adequate water and adding lemon to the water as well as continue vitamin B6. Will continue to monitor kidneys follow-up in 1 year. Orders: Orders US renal BI 10 Months Z87.442 - Personal history of urinary calculi AMB Urinalysis Automated Today Z13.9 - Encounter for screening, unspecified Patient Instructions: The patient had an opportunity to ask questions regarding treatment plan. The patient expressed understanding and agreement with the above treatment plan. The patient is aware they should contact our office by phone for worsening of their current condition or the appearance of new symptoms. Compliance is encouraged with any medications and followup testing that is ordered. It is a privilege to be allowed the opportunity to participate in the urologic care of your patient. If you have any questions or concerns regarding treatment for the above conditions please do not hesitate to contact me. The office telephone contact is [phone]. This note is constructed in part using voice recognition software. While every effort has been made to ensure accuracy rag boiler errors may have been included. Yours sincerely, Mitzy Sutton MD Coding Level of Care Code Est Pt Level 3 (09243) Diagnoses Bilateral kidney stones N20.0
== END 2024-02-27 14:08 | disposition home or self-care (01) ==
PROVIDERS: PCP Internal Medicine Geriatric Medicine; Visit Provider Urology
DX: Z13.9 Encounter for screening, unspecified (principal); N20.0 Calculus of kidney
CPT/HCPCS: 99213

== ENCOUNTER → 2024-02-27 13:32 | Outpatient (BNVA) | payer OTHER, SELFPAY | PROVIDERS: PCP Internal Medicine Geriatric Medicine; Visit Provider Urology | DX: N20.0 Calculus of kidney (principal) | CPT/HCPCS: 81003; 99212 ==

== ENCOUNTER 2024-09-10 10:26 | Outpatient (REF) | payer OTHER, SELFPAY ==
--- OUTSIDE RECORDS SUMMARY | 2024-09-10 11:21 | XMS_ITS | Encounter Summary ---
Author Organization [facility] Address [address] [place] [address] Care Team Providers Care Tire Building Supervisor Name Role Phone Name, Joo SRIVASTAVA Primary Care Provider [phone] Reason for Visit * Reason Onset Date Comments Nurse Triage 08/17/2024 Encounter Details Date Type Department Care Team (Late st Contact Info) Description 08/17/2024 Telephone [facility] [address] [place], [place] [phone] Name, MD Joo [address] [place], [place] [phone] Nurse Triage Social History Tobacco Use Types Packs/Day Years Used Date Smoking Tobacco: Never Smokeless Tobacco: Never Alcohol Use Standard Drinks/Week Comments Never 0 (1 standard drink = 0.6 oz pur e alcohol) Depression Answer Date Recorded Patient Health Questionnaire-9 Score 6 11/09/2022 Housing Stability Answer Date Recorded What is your housing situation today? I have min john 12/22/[address] you li ve. Do you have problems with any of the following? None of the above 12/22/2023 Food Insecurity Answer Date Recorded Within the past 12 months, y ou worried that your food would run out before you got money to buy more: Never True 12/22/2023 Within the past 12 months,th e food you bought just didn't last and you didn't have enough money to get more: Never True Transportation Answer Date Recorded In the past 12 months, has l ack of transportation kept you from medical appts, meetings, work or from getting things needed for daily living? No 12/22/2023 Utilities Answer Date Recorded In the past 12 months, has t he [employer], oil or water company threatened to shut off services in your home? No 12/22/2023 Depression Answer Date Recorded Patient Health Questionnaire-2 Score 2 11/09/2022 Comments Unknown Sex and Gender Information Value Date Recorded Sex Assigned at Female 05/31/2022 10:29 AM EDT Legal Sex Female 10:29 AM EDT Gender Identity Female 05/31/2022 10:29 AM EDT Sexual Orientation Straight 05/31/2022 10 :29 AM EDT documented as of this encounter Miscellaneous Notes * Telephone Encounter - Roxanne Guerrero RN - 08/17/2024 2:24 PM EST called pt to triage, spoke to daughter with pt. daughter states pt started on Tuesday with covid like symptoms and tested positive yesterday for covid. daughter states congestion, dry cough, sore throat, body aches, headaches, chest tightness, and mild fevers. daughter denies severe sob, rash, known high fevers, vomiting, or other associated symptoms. advised no available TC appt to discuss options and given the [employer] number to call for Paxlovid. advised that the medication can have some side effects and to speak to the provider at the time of the TC. advised home care: rest, fluids, steam, humidifier, warm saltwater gargles, lozenges, OTC pain or fever reliever as needed, and call back if worsening or new concerns. daughter understands and agrees with plan. insurance verified. Protocol Used: COVID-19 - Diagnosed or Suspected (Adult) Protocol-Based Disposition: Home Care Positive Triage Questions: * COVID-19 Home Isolation, questions about * COVID-19 Testing, questions about * COVID-19 Prevention and Healthy Living, questions about * COVID-19 Disease, questions about * All higher-acuity triage questions were negative Care Advice Discussed: * General Care Advice for COVID-19 Symptoms * Cough Medicines * Cough Syrup With Dextromethorphan * Cough Syrup With Dextromethorphan - Extra Notes and Warnings * Humidifier * Coughing Spells * Pain and Fever Medicines * Mild Stomach and Intestinal Symptoms During COVID-19 Illness * Reasons To Call Back - Fever over 103 F (39.4 C) - Fever lasts over 3 days - Fever returns after being gone for 24 hours - Chest pain or difficulty breathing occurs - Cough or other symptoms last more than 3 weeks - You become worse * Telephone Encounter - Susan Damiannte - 08/17/2024 2:00 PM EST Symptoms: Cough, Diarrhea, Body Aches Outcome: Schedule an appointment to be seen within 24 hours Reason: Caller denied all higher acuity questions The caller accepted this outcome. Tc from pt daughter Jazmyn calling to report pt tested positive for covid-19 yesterday 08/16/24. Contact Jazmyn at [phone] documented in this encounter Plan of Treatment Not on file documented as of this encounter Visit Diagnoses Not on filedocumented in this encounter Additional Health Concerns Assessment Noted Time PHQ-9 Depression Total Score: 6 11/10/19 23 11:33 AM EDT documented as of this encounter Care Teams Tire Building Supervisor Relationship Specialty Start Date End Date Name, MD Joo [address] [place] [address] PCP - General Family Medicine 04/23/22 documented as of this encounter
--- OUTSIDE RECORDS SUMMARY | 2024-09-10 11:21 | XMS_ITS | Clinical Summary ---
Author Organization [employer] Address [address] [place] [address] Care Team Providers Care Web Administrator Name Role Phone Name, Joo SRIVASTAVA Primary Care Provider [phone] Allergies No known active allergies Medications pyridoxine (Vitamin B-6) 100 MG tablet TAKE 1 TABLET BY MOUTH EVERYDAY 04/27/2023 Active Calcium Carb-Cholecalci ferol (Calcium 500+D High Potency) 500-10 MG-MCG tablet Take 1 tablet by mouth 2 times daily. 60 tablet 11 12/22/2023 12/22/19 25 Active atorvastatin (Lipitor) 20 MG tablet TAKE 1 TABLET BY MOUTH EVERY DAY 90 tablet 1 02/08/2024 Active lisinopril 20 MG tablet TAKE 1 TABLET BY MOUTH EVERY DAY 90 tablet 1 02/08/2024 Active Active Problems Problem Noted Date Diagnosed Date Bilateral nephrolithiasis 03/09/2023 Low back pain 03/07/2023 Mixed hyperlipidemia 08/12/2022 Peripheral venous insufficiency 11/06/2018 Recurrent major depression in partial remission 06/21/2016 Essential hypertension 09/18/2015 Osteoporosis 09/18/2015 Resolved Problems Problem Noted Date Diagnosed Date Resolved Date Cystitis 03/07/2023 12/22/2023 Microscopic hematuria 03/07/20232023 UTI (urinary tract infection) 01/31/2023 12/22/2023 Assessment & Plan (01/31/2023 4:33 PM EDT): drink plenty of water Do not hold urine In light of persistent symptoms I will extend her treatment Call back if persistent symptoms Encounters Date Type Department Care Team Description 09/10/2024 10:00 AM EST Office Visit [facility] [address] [place] [address] Name, MD Joo Essential hypertension (Primary Dx); Osteoarthritis of left knee, unspecified osteoarthritis type 09/10/2024 Travel 08/17/2024 Telephone [facility] [address] [place] [address] NameJoo MD Nurse Triage 08/17/2024 Refill [facility] [address] [place] [phone] Name, MD Joo from Last 3 Months Immunizations Name Administration Dates Next Due Influenza High-dose Quadriva lent Preservative Free 06/06/2023,07/07/2021,06/12/2020 Influenza injectable quadriv alent IIV4 with preservative 06/21/2016 Influenza injectable quadriv alent preservative free 07/07/2018 Influenza, High Dose Seasona l, Preservative Free 04/23/2024,04/20/2019,04/22/2017 Influenza, IIV3, injectable 05/06/2015 Pfizer Covid-19 Vaccine 12+ 04/23/2024 Pneumococcal Conjugate PCV 13 07/07/2018 Pneumococcal Polysaccharide PPSV23 11/23/2012 TD (adult), 2 Lf tetanus tox oid, preservative free, adsorbed 01/02/2014 Tdap 12/22/2023 Zoster, Recombinant 01/13/2022 Social History Tobacco Use Types Packs/Day Years Used Date Smoking Tobacco: Never Passive Smoke Exposure: Never Smokeless Tobacco: Never Tobacco Cessation:Counseling Given: Not Answered Alcohol Use Standard Drinks/Week Comments Never 0 (1 standard drink = 0.6 oz pur e alcohol) Depression Answer Date Recorded Patient Health Questionnaire-9 Score 3 09/10/2024 Patient Health Questionnaire-9 Score 3 09/10/2024 Last PHQ-9: Questionnaire Data Not on file 0 09/10/2024 Housing Stability Answer Date Recorded What is [...] the past 12 months, has t he electric, gas, oil or water company threatened to shut off services in your home? No 12/22/2023 Depression Answer Date Recorded Patient Health Questionnaire-2 Score 0 09/10/2024 Comments Unknown Sex and Gender Information Value Date Recorded Sex Assigned at Female 05/31/2022 10:29 AM EDT Legal Sex Female 10:29 AM EDT Gender Identity Female 05/31/2022 10:29 AM EDT Sexual Orientation Straight 05/31/2022 10 :29 AM EDT Last Filed Vital Signs Vital Sign Reading Time Taken Comments Blood Pressure 131/79 09/10/2024 10:18 AM EST Pulse 86 09/10/2024 9:56 AM EST Temperature 36.7 ??C (98 ??F) 09/10/2024 9:56 AM EST Respiratory Rate 17 09/10/2024 9:56 AM EST Oxygen Saturation 98% 04/23/2024 2:20 PM EDT Inhaled Oxygen Concentration - - Weight 67.6 kg (149 lb) 09/10/2024 9:56 AM EST Height 144.8 cm (4' 9 ) 09/10/2024 9:56 AM EST Body Mass Index 32.24 09/10/2024 9:56 AM EST Plan of Treatment Health Maintenance Due Date Last Done Comments RSV Patients and Patients Aged 60 years or older (1 - 1-dose 75+ series) 2021 Zoster Vaccines (2 of 2) 03/10/2022 01/13/2022 SDOH Screening 12/21/2024 12/22/2023 Alcohol/Substance Use Screening 09/10/2025 09/10/2024 Depression Screening 09/10/2025 09/10/2024, 09/10/19 Tobacco Screening 09/10/2025 09/10/2024 Lipid Panel 01/22/2029 01/23/2024, 04/03/2023, 04/09/2020 DTaP/Tdap/Td Vaccines (2 - Td or Tdap) 12/21/2033 12/22/2023, 01/02/2014, 01/02/2014 Pneumococcal Vaccine: 50+ Years Completed 07/07/2018, 11/23/2012 Hepatitis C Screening Completed 01/23/2024 COVID-19 Vaccine Completed 04/23/2024, , 12/17/2021, Additional history exists Influenza Vaccine Completed 04/23/2024, , 07/07/2021, Additional history exists HIB Vaccines Aged Out No longer eligi ble based on patient's age to complete this topic HPV Vaccines Aged Out No longer eligi ble based on patient's age to complete this topic Hepatitis A Vaccines Aged Out No long er eligible based on patient's age to complete this topic Hepatitis B Vaccines Aged Out No long er eligible based on patient's age to complete this topic IPV Vaccines Aged Out No longer eligi ble based on patient's age to complete this topic Meningococcal Vaccine Aged Out No héctor saturnino eligible based on patient's age to complete this topic RSV under 20 months Aged Out No longe r eligible based on patient's age to complete this topic Rotavirus Vaccines Aged Out No longer eligible based on patient's age to complete this topic Procedures Procedure Name Priority Date/Time Associated Diagnosis Comments HEPATITIS C AB W/REFL TO HCV RNA, QN, PCR Routine 01/23/2024 8:17 AM EDT Need for hepatitis C screening test LIPID PANEL, STANDARD Routine 01/23/2024 8:17 AM EDT Mixed hyperlipidemia from Last 3 Months or Most Recently Relevant to Health Maintenance Results * Hepatitis C Antibody with Reflex to HCV, RNA, Quantitative, Real-Time PCR (01/23/2024 8:17 AM EDT) Hepatitis C Antibody Nonreactive Nonreactive [facility] Comment:Antibodies to HCV no t detected; does not exclude early acuteHCV infection. Blood Venous blood specimen / Unknown 01/23/2024 8:17 AM EDT 01/23/2024 1:12 PM EDT us Joo Name LAB BLOOD ORDERABLES Final Resul t Performing Organization Address [facility] Co de Phone Number [facility] [address] [place] [address] [phone] * Lipid Panel, Standard (01/23/2024 8:17 AM EDT) Triglycerides 65 <150 mg/dL [facility] Comment:Desirable Triglyceri de: less than 150 mg/dLBorderline High Triglyceride 150-199 mg/dLHigh Triglyceride: 200-499 mg/dLVery High Triglyceride: greater than or equal to 5OO mg/dL Cholesterol 165 <200 mg/dL [facility] Comment:Desirable Cholestero l: less than 200 mg/dLBorderline High Cholesterol: 200-239 mg/dLHigh Cholesterol: greater than 239 mg/dL LDL Cholesterol Calculated 92 <100 mg/dL [facility] Comment:Desirable LDL: less than 100 mg/dLNear Optimal/Above Optimal LDL: 110- 129 mg/dLBorderline High LDL: 130-159 mg/dLHigh LDL: 160-189 mg/dLVery High LDL: greater than or equal to 190 mg/dL HDL Cholesterol 60 >40 mg/dL [facility] Comment:Desirable HDL: great er than 40 mg/dL Note: This HDL assay may give artificially low results in patients with liver disease. Blood Venous blood specimen / Unknown 01/23/2024 8:17 AM EDT 01/23/2024 1:12 PM EDT us Joo Gupta MD LAB BLOOD ORDERABLES Final Resul t Performing Organization Address [facility]/ZIP Co de Phone Number [facility] [address] [place] [address] [phone] from Last 3 Months or Most Recently Relevant to Health Maintenance Insurance [facility] STANDARD [facility] Care Teams Web Administrator Relationship Specialty Start Date End Date Name, MD Joo [address] [place] [phone] PCP - General Family Medicine 04/23/22
--- OUTSIDE RECORDS SUMMARY | 2024-09-10 11:21 | XMS_ITS | Encounter Summary ---
Author Organization [employer] Address [address] [place] [address] Care Team Providers Care Hand Trimmer Name Role Phone Name, Joo SRIVASTAVA Primary Care Provider [phone] Encounter Details Date Type Department Care Team (Latest Contact Info) Description 09/10/2024 Travel Social History Tobacco Use Types Packs/Day Years Used Date Smoking Tobacco: Never Passive Smoke Exposure: Never Smokeless Tobacco: Never Alcohol Use Standard [...] AM EDT documented as of this encounter Plan of Treatment Not on file documented as of this encounter Visit Diagnoses Not on filedocumented in this encounter Additional Health Concerns Assessment Noted Time PHQ-9 Depression Total Score: 3 09/10/19 25 9:58 AM EST documented as of this encounter Care Teams Hand Trimmer Relationship Specialty Start Date End Date Name, MD Joo [address] [place] [address] PCP - General Family Medicine 04/23/22 documented as of this encounter
--- OUTSIDE RECORDS SUMMARY | 2024-09-10 11:21 | XMS_ITS | Encounter Summary ---
Author Organization [employer] Address [address] [facility] 7t [place] [address] Care Team Providers Care Vice President Financial Name Role Phone Name, Joo SRIVASTAVA Primary Care Provider Reason for Visit * Reason Onset Date Comments Results 11/16/2023 Encounter Details Date Type Department Care Team ([facility] st Contact Info) Description 11/16/[address] [facility] MEDICINE [address] [place], [place] [phone] Name, MD Joo [address] [place], [place] [phone] Results Social History Tobacco Use Types Packs/Day Years Used Date Smoking Tobacco: Never Smokeless Tobacco: Never Alcohol Use Standard Drinks/Week Comments Never 0 (1 standard drink = 0.6 oz pur e alcohol) Depression Answer Date Recorded Patient Health Questionnaire-9 Score 6 11/09/2022 Housing Stability Answer Date Recorded What is your housing situation today? I have min john 05/27/[address] you li ve. Do you have problems with any of the following? None of the above 05/27/2023 Food Insecurity Answer Date Recorded Within the past 12 months, y ou worried that your food would run out before you got money to buy more: Often true 05/27/2023 Within the past 12 months,th e food you bought just didn't last and you didn't have enough money to get more: Often true Transportation Answer Date Recorded In the past 12 months, has l ack of transportation kept you from medical appts, meetings, work or from getting things needed for daily living? No 05/27/2023 Utilities Answer Date Recorded In the past 12 months, has t he electric, gas, oil or water [employer] threatened to shut off services in your home? No 05/27/2023 Depression Answer Date Recorded Patient Health Questionnaire-2 Score 2 11/09/2022 Comments Unknown Sex and Gender Information Value Date Recorded Sex Assigned at Female 05/31/2022 10:29 AM EDT Legal Sex Female 10:29 AM EDT Gender Identity Female 05/31/2022 10:29 AM EDT Sexual Orientation Straight 05/31/2022 10 :29 AM EDT documented as of this encounter Miscellaneous Notes * Telephone Encounter - Jo Schultz RN - 11/16/2023 1:47 PM EDT T-spot faxed to day program per pt request. * Telephone Encounter - Dl Whitney - 11/16/2023 10:01 AM EDT TC from pt requesting call back regarding Results. Type of results: T Spot Date when done: 10/30 Facility: [facility] [place] Labs Pt is requesting labs result to be faxed over to program. If any questions you can contact pt at [phone]. Program- documented in this encounter Plan of Treatment Not on file documented as of this encounter Visit Diagnoses Not on filedocumented in this encounter Additional Health Concerns Assessment Noted Time PHQ-9 Depression Total Score: 6 11/10/19 23 11:33 AM EDT documented as of this encounter Care Teams Vice President Financial Relationship Specialty Start Date End Date Name, MD Joo [address] [place] [address] PCP - General Family Medicine 04/23/22 documented as of this encounter
--- OUTSIDE RECORDS SUMMARY | 2024-09-10 11:21 | XMS_ITS | Encounter Summary ---
Author Organization [facility] [facility] Address [address] [facility] 7t [place] [address] Care Team Providers Care Software Firmware Engineer Name Role Phone Name, Joo SRIVASTAVA Primary Care Provider [phone] Reason for Visit * Reason Onset Date Comments Nurse Triage 02/04/2023 Encounter Details Date Type Department Care Team (Late st Contact Info) Description 02/04/2023 Telephone [facility] MEDICINE [address] [place], [place] [phone] Name, MD Joo [address] [place] [address] Nurse Triage Social History Tobacco Use Types Packs/Day Years Used Date Smoking Tobacco: Never Smokeless Tobacco: Never Depression Answer Date Recorded Patient Health Questionnaire-9 Score 6 11/09/2022 Depression Answer Date Recorded Patient Health Questionnaire-2 Score 2 11/09/2022 Comments Unknown Sex and Gender Information Value Date Recorded Sex Assigned at Female 05/31/2022 10:29 AM EDT Legal Sex Female 10:29 AM EDT Gender Identity Female 05/31/2022 10:29 AM EDT Sexual Orientation Straight 05/31/2022 10 :29 AM EDT COVID-19 Exposure Response Date Recorded In the last 10 days, have yo u been in contact with someone who was confirmed or suspected to have Coronavirus/COVID-19? No / Unsure 01/31/2023 8:42 AM EDT documented as of this encounter Miscellaneous Notes * Telephone Encounter - Subha Paredes RN - 02/04/2023 10:11 AM EDT Triage call with [employer] [place] [id number] and [id number] Pt reports concern about urinary symptoms and possible kidney stone. Pt has only been taking antibiotic once daily since seen 01/31. Pt is educated as to prescription sig which is to take cipro 500mg bid for 7 days. Pt has 8 tablets left. Pt is advised to take cipro 2x/day , AM and PM till remainder of pills are gone. Pt did use pyridium for the two days with good effect. Pt is advised to continue to increase fluids to 6-8 glasses per day and if continued symptoms of discomfort can be seen by provider in [facility] while waiting for apt with PCP 03/09/23. Pt is offered an apt with pcp this morning at 1100AM but, declines due to transportation not available and will wait for scheduled apt. Home care reviewed and no further questions offered. Protocol Used: Urinary Tract Infection on Antibiotic Follow-up Call - Female (Adult) Protocol-Based Disposition: Home Care Positive Triage Question: * Taking antibiotic < 72 hours (3 days) for UTI and painful urination or frequency not improved * All higher-acuity triage questions were negative Care Advice Discussed: * Reassurance and Education - Urinary Tract Infection * Drink Extra Fluids * Fluids - Extra Notes and Warnings * Phenazopyridine for Severe Urination Pain and Frequency * Phenazopyridine - Extra Notes and Warnings * Pain Medicines * Pain Medicines - Extra Notes and Warnings * Reasons To Call Back - Fever lasts over 24 hours on antibiotics - Pain does not improve by day 4 on antibiotics - Urine symptoms do not improve by day 4 on antibiotics - You become worse. * Telephone Encounter - Patricia Spence - 02/04/2023 9:14 AM EDT Symptom: Hip Pain - Not From Injury Outcome: Schedule an urgent appointment (within 1 hour) or talk to a nurse or provider soon Reason: Severe pain now The caller accepted this outcome Please contact pt at [phone] (Italian speaker) documented in this encounter Plan of Treatment Not on file documented as of this encounter Visit Diagnoses Not on filedocumented in this encounter Additional Health Concerns Assessment Noted Time PHQ-9 Depression Total Score: 6 11/10/19 23 11:33 AM EDT documented as of this encounter Care Teams Software Firmware Engineer Relationship Specialty Start Date End Date Name, MD Joo [address] [place] [address] PCP - General Family Medicine 04/23/22 documented as of this encounter
--- OUTSIDE RECORDS SUMMARY | 2024-09-10 11:21 | XMS_ITS | Clinical Summary ---
Author Organization [facility] Address [address] [place] [address] Phone Care Team Providers Care Senior Mechanical Designer Name Role Phone Name, Joo SRIVASTAVA Primary Care Provider [phone] Encounters Date Type Department Care Team Description 07/03/2024 2:00 PM EST - 07/03/2024 11:59 PM EST Hospital Encounter [facility] at [address] [phone] Encounter for screening mammogram for breast cancer Discharge Disposition: Home or Self Care from Last 3 Months Surgical History Surgery Date Site/Laterality Comments OTHER SURGICAL HISTORY 12/10 PROCEDURE: MAMMOGRAM COLONOSCOPY 06/11 PROCEDURE: WY COLONOSCOPY STOMA DX INCLUDING COLLJ SPEC SPX STEREOTACTIC CORE BIOPSY Medical History Medical History Date Comments Hypertension 11/23/2012 DX:Hypertension Osteoporosis 11/23/2012 DX:Osteoporosis Insomnia 11/23/2012 DX:Insomnia Glaucoma 11/23/2012 DX:Glaucoma Family History Medical History Relation Name Comments Breast cancer Aunt 1 maternal Diabetes Brother 1 Other: pacemaker Father Breast cancer Maternal Grandmother Breast cancer Mother Diabetes Mother colon canc er, 85, breast cancer Hypertension Other 1 7 siblings Breast cancer Sister Relation Name Status Comments Aunt 1 Aunt 2 Brother 1 Brother 2 Father Maternal Grandmother Mother Other 1 Other 2 Sister Social History Tobacco Use Types Packs/Day Years Used Date Smoking Tobacco: Never Smokeless Tobacco: Never Alcohol Use Standard Drinks/Week Comments No 0 (1 standard drink = 0.6 oz pur e alcohol) Comments No Sex and Gender Information Value Date Recorded Sex Assigned at Not on file Legal Sex Female 2:17 AM EST Gender Identity Not on file Sexual Orientation Not on file Obstetrics History Para Term AB IAB SAB Ectopic Multiple Livin g Live Births 3 Last Filed Vital Signs Vital Sign Reading Time Taken Comments Blood Pressure - - Pulse - - Temperature - - Respiratory Rate - - Oxygen Saturation - - Inhaled Oxygen Concentration - - Weight 67.1 kg (148 lb) 07/03/2024 2:35 PM EST Height 149.9 cm (4' 11 ) 07/03/2024 2:35 PM EST Body Mass Index 29.89 07/03/2024 2:35 PM EST Plan of Treatment Health Maintenance Due Date Last Done Comments RSV Immunization Patients 60+ Years Old (1 - 1-dose 75+ series) 2021 Zoster Vaccines (2 of 2) 03/10/2022 01/13/2022 Colorectal Cancer Screening: Colonoscopy 07/04/2022 Falls Risk Assessment 07/04/2022 Medicare Annual Wellness Visit 07/04/2022 Osteoporosis Screening (Bone Density Screening) 07/04/2022 Social Influencers of Health Screening 07/04/2022 Hypertension/CHF/CAD Annual BMP Blood Test 07/17/2022 Depression Screening 11/10/2023 11/09/2022 DTaP,Tdap,and Td Vaccines (3 - Td or Tdap) 06/23/2024 12/22/2023, 01/02/2014 Cholesterol Screening (Lipid Panel) 01/22/2029 01/23/2024 Pneumococcal Vaccine: 50+ Years Completed 07/07/2018, 11/23/2012 [...] on patient's age to complete this topic MMR Vaccines Aged Out No longer eligi ble based on patient's age to complete this topic Meningococcal ACWY Vaccine Aged Out N o longer eligible based on patient's age to complete this topic Meningococcal B Vacine Aged Out No lo nger eligible based on patient's age to complete this topic RSV Immunization Patients Under 20 months Aged Out No longer eligible based on patient's age to complete this topic Varicella Vaccines Aged Out No longer eligible based on patient's age to complete this topic Procedures Procedure Name Priority Date/Time Associated Diagnosis Comments MG MAMMO DIGITAL SCREENING W RUIZ BILAT Routine 07/03/2024 2:51 PM EST Encounter for screening mammogram for breast cancer from Last 3 Months Results * MG Mammo Digital Screening w Ruiz bilat (07/03/2024 2:51 PM EST) Anatomical Region Laterality Modality Breast Bilateral Mammography 07/03/2024 4:18 PM EST Impressions 07/03/2024 4:20 PM EST No evidence of breast malignancy. BI-RADS CATEGORY: 1 - NEGATIVE RECOMMENDATION: Screening bilateral mammogram is recommended in 1 year. Mammo Location: [facility], [address] [place] [address], [address], . -------- FINAL REPORT -------- Dictated By: Kristin Dueñas Dictated Date: 07/03/2024 16:18 ET Assigned Physician: Kristin Dueñas Reviewed and Electronically Signed By: Kristin Dueañs Signed Date: 07/03/2024 16:20 ET Workstation ID: [id number] Transcribed By: Self Edit Transcribed Date: 07/03/2024 16:18 ET Narrative 07/03/2024 4:20 PM EST CLINICAL: 78 years old, Female, routine annual exam. COMPARISON: 06/30/2023, 06/22/2022, 04/23/2021, 04/18/2020 and 02/16/2019 ?? TECHNIQUE: Bilateral MLO and CC views were obtained digitally with 3-D mammogram (digital breast tomosynthesis). Computer-aided detection was utilized in evaluation of this exam (CAD). FINDINGS: There is no evidence of suspicious mass or architectural distortion. ??No worrisome calcifications are evident. ??There has been no significant change from prior exam(s). ?? BREAST DENSITY: B - There are scattered areas of fibroglandular density. Procedure Note Kristin Dueñas MD - 07/03/2024 CLINICAL: 78 years old, Female, routine annual exam. COMPARISON: 06/30/2023, 06/22/2022, 04/23/2021, 04/18/2020 and 02/16/2019 TECHNIQUE: Bilateral MLO and CC views were obtained digitally with 3-Dmammogram (digital breast tomosynthesis). Computer-aided detection wasutilized in evaluation of this exam (CAD). FINDINGS: There is no evidence of suspicious mass or architectural distortion. Noworrisome calcifications are evident. There has been no significantchange from prior exam(s). BREAST DENSITY: B - There are scattered areas of fibroglandular density. IMPRESSION: No evidence of breast malignancy. BI-RADS CATEGORY: 1 - NEGATIVE RECOMMENDATION: Screening bilateral mammogram is recommended in 1 year. Mammo Location: [facility], [address] [place] [address], [address], . -------- FINAL REPORT -------- Dictated By: Kristin Dueñas Dictated Date: 07/03/2024 16:18 ET Assigned Physician: Kristin Dueñas Reviewed and Electronically Signed By: Kristin Dueñas Signed Date: 07/03/2024 16:20 ET Workstation ID: [id number] Transcribed By: Self Edit Transcribed Date: 07/03/2024 16:18 ET us Self Referral Sppl IMG BI PROCEDURES Final Resul t from Last [address] [place] [address] Member Subscriber Plan / Payer (Ef fective 2022-Present) Name:Nayeli Echavarria Relation to Subscriber:Self Name:Nayeli Echavarria Payer ID:[id number] Group ID:[id number] Type:Not on file Address: [address] [place] [address] MEDICAID - [place] [employer] MEDICARE Member Subscriber Plan / Payer ( fective 2022-Present) Name:Nayeli Echavarria Relation to Subscriber:Self Name:Nayeli Echavarria Payer ID:[id number] Group ID:[id number] Type:Not on file Address: [address] [place] [address] Care Teams Senior Mechanical Designer Relationship Specialty Start Date End Date Name, MD Joo [address] [place] [address] PCP - General Internal Medicine 06/06/24
--- OUTSIDE RECORDS SUMMARY | 2024-09-10 11:21 | XMS_ITS | Encounter Summary ---
Author Organization [employer] Address [address] [facility] 7t [place] [address] Care Team Providers Care B2B Sales Professional Name Role Phone Name, Joo SRIVASTAVA Primary Care Provider [phone] Reason for Visit * Reason Comments Hypertension Encounter Details Date Type Department Care Team (Latest Contact Info) Description 09/10/2024 10:00 AM EST Office Visit [facility] MEDICINE [address] [place], [place] [phone] Name, MD Joo [address] [place], [place] [phone] Essential hypertension (Primary Dx); Osteoarthritis of left knee, unspecified osteoarthritis type Social History Tobacco Use Types Packs/Day Years [...] AM EDT documented as of this encounter Last Filed Vital Signs Vital Sign Reading Time Taken Comments Blood Pressure 131/79 09/10/2024 10:18 AM EST Pulse 86 09/10/2024 9:56 AM EST Temperature 36.7 ??C (98 ??F) 09/10/2024 9:56 AM EST Respiratory Rate 17 09/10/2024 9:56 AM EST Oxygen Saturation - - Inhaled Oxygen Concentration - - Weight 67.6 kg (149 lb) 09/10/2024 9:56 AM EST Height 144.8 cm (4' 9 ) 09/10/2024 9:56 AM EST Body Mass Index 32.24 09/10/2024 9:56 AM EST documented in this encounter Progress Notes * Joo Gupta MD - 09/10/2024 10:00 AM EST Subjective Patient ID: Nayeli Echavarria is a 78 y.o. female who presents for Hypertension. Patient comes for a follow-up visit. She is accompanied by her daughter. She is using lisinopril daily. BP was initially elevated but repeat blood pressure is better. She does not have any cough. No chest pain or shortness of breath. She complains of bilateral knee pain related to walking. This is likely secondary to DJD. She describes difficulties going up and down stairs. She has requested a letter for her apartment so she is moved to a first-floor apartment. Review of Systems Constitutional: Negative for chills and fever. HENT: Negative for sore throat. Respiratory: Negative for cough, shortness of breath and wheezing. Cardiovascular: Negative for chest pain, palpitations and leg swelling. Gastrointestinal: Negative for abdominal pain. Visit Vitals BP 131/79 Pulse 86 Temp 98 ??F (36.7 ??C) (Oral) Resp 17 Ht 4' 9 (1.448 m) Wt 149 lb (67.6 kg) BMI 32.24 kg/m?? Smoking Status Never BSA 1.65 m?? Objective Physical Exam Constitutional: Appearance: Normal appearance. Cardiovascular: Rate and Rhythm: Normal rate and regular rhythm. Heart sounds: No murmur heard. No gallop. Pulmonary: Effort: Pulmonary effort is normal. No respiratory distress. Breath sounds: Normal breath sounds. No wheezing. Musculoskeletal: Right lower leg: No edema. Left lower leg: No edema. Neurological: Mental Status: She is alert. Assessment/Plan Diagnoses and all orders for this visit: Essential hypertension Comments: Continue current dose of lisinopril and recheck BMP. Orders: - Basic Metabolic Panel; Future Osteoarthritis of left knee, unspecified osteoarthritis type Comments: I recommended regular physical activity. Acetaminophen as needed. I told her to get the letter to move to a first-floor apartment at medical records. documented in this encounter Plan of Treatment Scheduled Orders Name Type Priority Associated Diagnoses Orde r Schedule Basic Metabolic Panel Lab Routine Essential hypertension Expected: 09/10/2024 (Approximate), Expires: 09/10/2025 documented as of this encounter Visit Diagnoses Diagnosis Essential hypertension- Primary Unspecified essential hypertension Osteoarthritis of left knee, unspecified osteoarthritis type documented in this encounter Additional Health Concerns Assessment Noted Time PHQ-9 Depression Total Score: 3 09/10/19 25 9:58 AM EST documented as of this encounter Care Teams B2B Sales Professional Relationship Specialty Start Date End Date Name, MD Joo [address] [place] [address] PCP - General Family Medicine 04/23/22 documented as of this encounter
--- OUTSIDE RECORDS SUMMARY | 2024-09-10 11:21 | XMS_ITS | Encounter Summary ---
Author Organization [employer] Address [address] [facility] 7t [place] [address] Care Team Providers Care Interdisciplinary Professor Name Role Phone Name, Joo SRIVASTAVA Primary Care Provider [phone] Reason for Visit * Reason Onset Date Comments Lab Orders 10/26/2023 Appointment Request 10/26/2023 Encounter Details Date Type Department Care Team ([facility] st Contact Info) Description 10/26/2023 Telephone [facility] MEDICINE [address] [place] [address] Name, MD Joo [address] [place], [place] [phone] Lab Orders; Appointment Request Social History Tobacco Use Types Packs/Day Years [...] encounter Miscellaneous Notes * Telephone Encounter - Nicholas Del Castillo RN - 10/26/2023 4:39 PM EDT T/C to pt. To inform that she can go to lab for blood work for TB blood test. Pt. Verbally agreed and understood. * Telephone Encounter - Get Acuña - 10/26/2023 1:56 PM EDT Tc from the patient requesting a appt to get lab works for TB in order for the patient can continueto go to a Elderly program documented in this encounter Plan of Treatment Not on file documented as of this encounter Visit Diagnoses Not on filedocumented in this encounter Additional Health Concerns Assessment Noted Time PHQ-9 Depression Total Score: 6 11/10/19 23 11:33 AM EDT documented as of this encounter Care Teams Interdisciplinary Professor Relationship Specialty Start Date End Date Name, MD Joo [address] [place] [address] PCP - General Family Medicine 04/23/22 documented as of this encounter
--- OUTSIDE RECORDS SUMMARY | 2024-09-10 11:21 | XMS_ITS | Encounter Summary ---
Author Organization [employer] Address [address] [facility] 7t [place] [address] Care Team Providers Care Still Pump Operator Name Role Phone Name, Joo SRIVASTAVA Primary Care Provider Reason for Visit * Reason Comments Med Refill Encounter Details Date Type Department Care Team ([facility] st Contact Info) Description 08/17/2024 Refill [facility] MEDICINE [address] [place], [place] [phone] Name, MD Joo [address] [place], [place] [phone] Social History Tobacco Use Types Packs/Day Years [...] documented as of this encounter Care Teams Still Pump Operator Relationship Specialty Start Date End Date Name, MD Joo [address] [place] [address] PCP - General Family Medicine 04/23/22 documented as of this encounter
--- OUTSIDE RECORDS SUMMARY | 2024-09-10 11:21 | XMS_ITS | Encounter Summary ---
Author Organization [employer] Address [address] [facility] 7t [place] [address] Care Team Providers Care University Relations Recruiter Name Role Phone Name, Joo SRIVASTAVA Primary Care Provider [phone] Encounter Details Date Type Department Care Team (Late st Contact Info) Description 08/16/2023 Telephone [facility] MEDICINE [address] [place], [place] [phone] Name, MD Joo [address] [place], [place] [phone] Social History Tobacco Use Types Packs/Day Years Used Date Smoking Tobacco: Never Smokeless Tobacco: Never Alcohol Use Standard Drinks/Week Comments Never 0 (1 standard drink = 0.6 oz pur e alcohol) Depression Answer Date Recorded Patient Health Questionnaire-9 Score 6 11/09/2022 Housing Stability Answer Date Recorded What is your housing situation today? I have minkaran john 05/27/[address] you [...] documented as of this encounter Care Teams University Relations Recruiter Relationship Specialty Start Date End Date Name, MD Joo [address] [place] [address] PCP - General Family Medicine 04/23/22 documented as of this encounter
--- OUTSIDE RECORDS SUMMARY | 2024-09-10 11:21 | XMS_ITS | Encounter Summary ---
Author Organization [facility] Address [address] [facility] 7t [place] [address] Care Team Providers Care Energy Economist Name Role Phone Name, Joo SRIVASTAVA Primary Care Provider [phone] Encounter Details Date Type Department Care Team (Late st Contact Info) Description 08/12/2022 Telephone [facility] MEDICINE [address] [place], [place] [phone] Name, MD Joo [address] [place], [place] [phone] Social History Tobacco Use Types Packs/Day Years Used Date Smoking Tobacco: Never Assessed Comments Unknown Sex and Gender Information Value Date Recorded Sex Assigned at Female 05/31/2022 10:29 AM EDT Legal Sex Female 10:29 AM EDT Gender Identity Female 05/31/2022 10:29 AM EDT Sexual Orientation Straight 05/31/2022 10 :29 AM EDT documented as of this encounter Plan of Treatment Not on file documented as of this encounter Visit Diagnoses Not on filedocumented in this encounter Care Teams Energy Economist Relationship Specialty Start Date End Date Name, MD Joo [address] [place] [phone] PCP - General Family Medicine 04/23/22 documented as of this encounter
--- OUTSIDE RECORDS SUMMARY | 2024-09-10 11:21 | XMS_ITS | Encounter Summary ---
Author Organization [employer] Address [address] [facility] 7t [place] [address] Care Team Providers Care Director Clinical Research Name Role Phone Name, Joo SRIVASTAVA Primary Care Provider [phone] Reason for Visit * Reason Onset Date Comments Reschedule 08/24/2023 Encounter Details Date Type Department Care Team (Late st Contact Info) Description 08/24/2023 Telephone [facility] MEDICINE [address] [place], [place] [phone] Name, MD Joo [address] [place], [place] [phone] Reschedule Social History Tobacco Use Types Packs/Day Years [...] encounter Miscellaneous Notes * Telephone Encounter - Carolyn David - 08/24/2023 12:43 PM EST Tc from daughter requesting r/s f/u appt. Tuesday or . documented in this encounter Plan of Treatment Not on file documented as of this encounter Visit Diagnoses Not on filedocumented in this encounter Additional Health Concerns Assessment Noted Time PHQ-9 Depression Total Score: 6 11/10/19 23 11:33 AM EDT documented as of this encounter Care Teams Director Clinical Research Relationship Specialty Start Date End Date Name, MD Joo [address] [place] [address] PCP - General Family Medicine 04/23/22 documented as of this encounter
[2024-09-10 11:29] LABS: Anion Gap 10 (12-20); Blood Urea Nitrogen 18 mg/dL (9-16); Carbon Dioxide 29 mmol/L (22-29); Chloride 108 mmol/L (96-108); Estimated Glomerular Filt Rate > 60; Glucose Random 86 mg/dL (60-115); Potassium 4.1 mmol/L (3.3-5.1); Sodium 143 mmol/L (135-145)
== END 2024-09-10 10:27 | disposition home or self-care (01) ==
LOC: HO.HHCL 10:26
PROVIDERS: Visit Provider Internal Medicine Geriatric Medicine
DX: I10 Essential (primary) hypertension (principal)
CPT/HCPCS: 36415; 80048

== ENCOUNTER 2025-02-07 12:17 | Outpatient (REF) | payer OTHER, SELFPAY ==
--- OUTSIDE RECORDS SUMMARY | 2023-06-27 10:30 | XMS_ITS | Continuity of Care Document ---
Author Organization [facility] Address [address] [place] [address] [address] [place] [id number] Phone Care Team Providers Care Rn Surgical Pcu Name Role Phone Torres SRIVASTAVA, KASANDRA, Lowell DAUGHERTY Unavailable U navailable Procedures Procedure Date Office/Oupt E&M New Pt 30 Mins Duplex Scan-extrem Veins; Comp Advance Directives Directive Yes / No Effective Date File Name No Information Encounters Encounter Description Practice Location Reason(s) For Visit Diagnoses Date Provider Providers Copied on Encounter Office/Oupt E&M New Pt 30 Mins [facility], [address] [place] [address] [address], [id number], [place] tel:[phone] CVR - [place] - Hannah Varicose veins of bilateral lower extremities with painLocalized edemaPain in right legPain in left legEssential (primary) hypertensionVe nous insufficiency (chronic) (peripheral)Cr amp and spasm 3 Torres SRIVASTAVA, DAT SLAUGHTER. [address] [facility] [address], [place], [place], [id number] , [place]. tel:[phone] Referring Provider: Joo Gupta MD, [address] [place] [address], [address]. tel:[phone] [facility], [address] [place] [address] [address], [id number], [place] tel:[phone] CVR - [facility] Varicose veins of bilateral lower extremities with pain 3 Curtis SRIVASTAVA FACS RVT RPVI Keely Clemons. [address] [facility], [address], [place], [address], [place]. tel:[phone] Referring Provider: Joo Gupta MD, [address], [place], [address]. tel:[phone] Family History Family Member Type Diagnosis Age At Onset No Information Payers Payer name Insurance type Covered democrat ID Authoriza ion(s) [facility] [id number] Medical Assistance [facility] [id number] Social History Type Description Quantity Date Captured Comments Alcohol Use Details Unknown Caffeine Use Details Unknown Tobacco Use Status No Information Smoking Status Never Smoker Non-Smoking Tobacco Use Details : No Details Available : No Details Available Sex Female Vital Signs Date / Time: Height Weight BMI Pulse Rate Blood Pressure Temperature Respiratory Rate Body Surface Area Head Circumference Head Circ. Percentile Wt./[place]. Percentile BMI percentile Pulse Ox Inhaled Ox 67.590 kg (149.00 lbs) 30.2 7 kg/m eter (2) 136/85 mm[Hg] Chief Complaint And Reason For Visit No Information Reason For Referral Reason For Referral No Information Plan Of Treatment Date Type Action Status Goal Diet education completed Referral Ordered: Weight management: Referral to physician timeframe: 3 Months (related to Body mass index (BMI) 30.0-30.9, adult) ordered History Of Present Illness Encounter Date Complaint History Of Prese nt Illness No Information Functional Status Date Functional Assessmen t No Information Instructions Date Instruction Additional Infor mation Diet education Related to Body mass index (BMI) 30.0-30.9, adult Giving Encouragement to exercise Related to Body mass index (BMI) 30.0-30.9, adult Lifestyle education Related to B merissa mass index (BMI) 30.0-30.9, adult Patient education booklet given Related to Varicose veins of bilateral lower extremities with pain Pre and post instruc tions reviewed and provided Related to Varicose veins of bilateral lower extremities with pain Assessments Type Assessment Date No Information Patient Care Teams Name Effective Dates (start - stop) Status Members No Information
--- NOTE | ~2025-02-07 | US_ITS ---
CLINICAL HISTORY: Z87.442 - Personal history of urinary calculi US of kidneys Comparison: US/SR - US RENAL BI - 01/09/24 10:39 EDT Findings: Right renal lower pole and left renal upper pole are not well visualized due to limited acoustic window, allowing for the limitation: Right kidney is normal in size, echogenicity and morphology, 10.3 cm in length. Simple cysts 1.4 cm and 1.1 cm in the upper pole. No calculus or hydronephrosis. Left kidney is normal in size, echogenicity and morphology, 10.9 cm in length. 5 mm calculus at the lower interpolar region, not visualized before. Limited color Doppler demonstrates unremarkable bilateral blood flow. Impression: 1. Nonobstructing left nephrolithiasis. This document has been electronically signed by: Leonila Enamorado MD on 02/08/2025 13:32:48
--- OUTSIDE RECORDS SUMMARY | 2025-02-07 12:35 | XMS_ITS | Clinical Summary ---
Author Organization [facility] Address [address] [place] [address] Phone Care Team Providers Care Fixed Income Analyst Name Role Phone Name, Joo SRIVASTAVA Primary Care Provider [phone] Surgical History Surgery Date Site/Laterality Comments OTHER SURGICAL HISTORY 12/10 PROCEDURE: MAMMOGRAM COLONOSCOPY 06/11 PROCEDURE: [place] COLONOSCOPY STOMA DX INCLUDING COLLJ SPEC SPX [...] Due Date Last Done Comments RSV Immunization Adult Patients (1 - 1-dose 75+ series) 2021 Zoster Vaccines (2 of 2) 03/10/2022 01/13/2022 Colorectal Cancer Screening: Colonoscopy 07/04/2022 Falls Risk Assessment 07/04/2022 Medicare Annual Wellness Visit 07/04/2022 Osteoporosis Screening (Bone Density Screening) 07/04/2022 Social Influencers of Health Screening 07/04/2022 Hypertension/CHF/CAD Annual BMP Blood Test 07/17/2022 Depression Screening 11/10/2023 11/09/2022 COVID-19 Vaccine ( season) 2024 04/23/2024, 06/29/2022, 12/17/2021, Additional history exists Influenza Vaccine (#1) 2025 , 06/06/2023, 07/07/2021, Additional history exists Cholesterol Screening (Lipid Panel) 01/22/2029 01/23/2024 DTaP,Tdap,and Td Vaccines (3 - Td or Tdap) 12/21/2033 12/22/2023, 01/02/2014 Pneumococcal Vaccine: 50+ Years Completed 07/07/2018, 11/23/2012 Hepatitis C Screening Completed 01/23/2024 HIB Vaccines Aged Out No longer eligi [...] age to complete this topic Meningococcal B Vaccine Aged Out No l onger eligible based on patient's age to complete this topic RSV Immunization Patients Under 20 months Aged Out No longer eligible based on patient's age to complete this topic Varicella Vaccines Aged Out No longer eligible based on patient's age to complete this topic Insurance [facility] Member Subscriber Plan / Payer (Ef fective 2022-Present) Name:Nayeli Echavarria Relation to Subscriber:Self Name:Nayeli Echavarria Payer ID:[id number] Group ID:[id number] Type:Not on file Address: [address] [place] [address] MEDICAID - [place] [employer] MEDICARE Member Subscriber Plan / Payer ( fective 2022-Present) Name:Nayeli Echavarria Relation to Subscriber:Self Name:Nayeli Echavarria Payer ID:[id number] Group ID:[id number] Type:Not on file Address: [address] [place] [address] Care Teams Fixed Income Analyst Relationship Specialty Start Date End Date Name, MD Joo [address] [place] [address] PCP - General Internal Medicine 06/06/24
--- OUTSIDE RECORDS SUMMARY | 2025-02-07 12:35 | XMS_ITS | Encounter Summary ---
Author Organization [employer] Address [address] [facility] [address] [place] [address] Care Team Providers Care Adjunct Instructor Name Role Phone Name, Joo SRIVASTAVA Primary Care Provider [phone] Encounter Details Date Type Department Care Team (Late st Contact Info) Description 08/12/2022 Telephone [facility] MEDICINE [address] [place] [phone] Joo Gupta MD [address] [place] [phone] Social History Tobacco Use Types Packs/Day Years Used Date Smoking Tobacco: Never Assessed Comments Unknown Sex and Gender Information Value Date Recorded Sex Assigned at Female 05/31/2022 10:29 AM EDT Legal Sex Female 10:29 AM EDT Gender Identity Female 05/31/2022 10:29 AM EDT Sexual Orientation Straight 05/31/2022 10 :29 AM EDT documented as of this encounter Plan of Treatment Upcoming Encounters Date Type Department Care Team (Late st Contact Info) Description 04/04/2025 11:15 AM EDT Office Visit [facility] MEDICINE [address] [place] [phone] Joo Gupta MD [address] [place] [address] documented as of this encounter Visit Diagnoses Not on filedocumented in this encounter Care Teams Adjunct Instructor Relationship Specialty Start Date End Date Joo Gupta MD [address] [place] [address] PCP - General Family Medicine 04/23/22 documented as of this encounter
== END 2025-02-07 12:18 | disposition home or self-care (01) ==
LOC: HO.US 12:17
PROVIDERS: PCP Internal Medicine Geriatric Medicine; Visit Provider Urology
DX: Z87.442 Personal history of urinary calculi (principal)
CPT/HCPCS: 76775

== ENCOUNTER → 2025-02-07 12:19 | Outpatient (BNV) | payer OTHER, SELFPAY | PROVIDERS: PCP Internal Medicine Geriatric Medicine; Visit Provider Radiology Diagnostic Radiology | DX: N20.0 Calculus of kidney (principal) | CPT/HCPCS: 76775 ==

== ENCOUNTER 2025-02-25 11:34 | Outpatient (AMB) | payer OTHER, SELFPAY ==
--- NOTE | 2025-02-25 11:37 | A.OFFVIS_ITS ---
Intake Visit Reasons: 1y/US Intake Note: Patient presents today for 1y/US * Renal US 02/08 Urology Meds- Vitamin B6 Allergies to Antibiotic- No Known Allergies Blood Thinner- None Assurance Manager Insurance Required: No Accompanied by: Sister Allergies No Known Allergies Allergy (Verified 02/25/25 11:38) HPI Comments Details: 02/25/25-- 02/27/24--Nayeli is a 78-year-old female who presents today to the office follow up for renal stones. She states she has been doing well she did have some flank pain several weeks ago which went away. Last year CT scan noted 2 small stones 1 in each kidney. I have reviewed recent kidney ultrasound which is within normal limits no kidney stones visualized. She is encouraged to continue drinking adequate water and adding lemon to the water as well as continue vitamin B6. Will continue to monitor kidneys follow-up in 1 year. 08/29/23--here for fu to review labs: Discussed 24 hour urine results: Total volume 2.12 mL, Calcium 239 mg; Oxalate 26 mg, Sodium 180, Citrate 757 mg. Instructed on importance of fluid intake, low sodium diet, cont Vit B6 100 mg . 04/25/2023? She is present today to establish as a new patient for an evaluation of?renal stones. The patient is a Albanian speaking female. Her sister interpreted during the visit. She states that in December she had back pain and blood in her urine, and was told she likely passed a kidney stone. Currently she is asymptomatic. I reviewed the CT of the abdomen/pelvis results from 01/16/2023 revealed 3 mm upper pole right kidney and a 3 mm lower pole left renal calculi without caliectasis or hydronephrosis. Diet sheet for renal calculi prevention was provided to the patient. Discussed to reduce sodium intake. Discussed to consume adequate amount of water. Discussed Low oxalate diet---green leafy vegetable, nuts, and tea in moderation as they are rich in oxalate. Plan-Ordered 24-hour urine collection, serum Ca and serum PTH. Follow-up in 3 months. [facility] Surgical History No pertinent past surgical history Family History Father No problems noted. Mother No problems noted. Social History Alcohol intake: current Alcohol intake frequency: does not drink Patient Tobacco Use Status: Never used Tobacco Results AMB Urinalysis, Automated UA Leukoctes 0 Darren/uL Last Edit by Radha Echavarria on 02/25/25 12:00 UA Nitrite Negative Last Edit by Radha Echavarria on 02/25/25 12:00 UA Urobilinogen 17 mg/dL Last Edit by Radha Echavarria on 02/25/25 12:00 UA Protein 0 mg/dL Last Edit by Radha Echavarria on 02/25/25 12:00 UA pH 7.5 Last Edit by Radha Echavarria on 02/25/25 12:00 UA Blood 25 Moose/uL Last Edit by Radha Echavarria on 02/25/25 12:00 UA Specific [place] 1.010 Last Edit by Radha Echavarria on 02/25/25 12:00 UA Ketone Negative Last Edit by Radha Echavarria on 02/25/25 12:00 UA Bilirubin 0 mg/dL Last Edit by Radha Echavarria on 02/25/25 12:00 UA Glucose 0 mg/dL Last Edit by Radha Echavarria on 02/25/25 12:00 Results Reviewed Results Reviewed: Laboratory Last Values Urine pH (Auto) 7.5 02/25/25 11:58 Specific [place] (Auto) 1.010 02/25/25 11:58 Urine Protein (Auto) 0 mg/dL 02/25/25 11:58 Glucose (UA)(Auto) 0 mg/dL 02/25/25 11:58 Urine Ketones (Auto) Negative 02/25/25 11:58 Urine Blood (Auto) 25 Moose/uL 02/25/25 11:58 Urine Nitrite (Auto) Negative 02/25/25 11:58 Urine Bilirubin (Auto) 0 mg/dL 02/25/25 11:58 Urine Urobilinogen (Auto) 17 mg/dL 02/25/25 11:58 Leukocyte Esterase (Auto) 0 Darren/uL 02/25/25 11:58 Date of Service: 02/07/25 Procedure(s): US renal BI Accession Number(s): [id number] cc: Mitzy Sutton MD; Name,Joo SRIVASTAVA~ CLINICAL HISTORY: Z87.442 - Personal history of urinary calculi US of kidneys Comparison: US/SR - US RENAL BI - 01/09/24 10:39 EDT Findings: Right renal lower pole and left renal upper pole are not well visualized due to limited acoustic window, allowing for the limitation: Right kidney is normal in size, echogenicity and morphology, 10.3 cm in length. Simple cysts 1.4 cm and 1.1 cm in the upper pole. No calculus or hydronephrosis. Left kidney is normal in size, echogenicity and morphology, 10.9 cm in length. 5 mm calculus at the lower interpolar region, not visualized before. Limited color Doppler demonstrates unremarkable bilateral blood flow. Impression: 1. Nonobstructing left nephrolithiasis. Date of Service: 01/09/24 US RETROPERITONEAL LIMITED (RENAL ONLY) CLINICAL INFORMATION: Calculus of kidney. COMPARISON: CT abdomen and pelvis 01/16/2023. TECHNIQUE: Real-time imaging of the kidneys. Limited visualization due to bowel gas. FINDINGS: RIGHT KIDNEY: 9.4 x 5.2 x 4.9 cm (SAG x AP x TRV). No hydronephrosis. No renal calculi. Renal cortical thickness is normal. Limited visualization. 1.4 cm upper pole pole cyst with benign features. There is no indication for follow-up imaging. LEFT KIDNEY: 10.0 x 5.1 x 4.2 cm (SAG x AP x TRV). No hydronephrosis. No renal calculi. Renal cortical thickness is normal. Limited visualization. A 1.1 cm interpolar pole cyst with benign features. There is no indication for follow-up imaging. IMPRESSION: No hydronephrosis. No renal calculi. Date of Service: 01/16/23 EXAMINATION: CT ABDOMEN AND PELVIS WITHOUT CONTRAST?? CLINICAL INFORMATION: Bilateral flank pain?? COMPARISON: None available. FINDINGS: LUNG BASES: The lung bases are clear. The heart size is normal.?? LIVER, GALLBLADDER, AND BILIARY TREE: The liver is normal in size, shape, and attenuation. No focal hepatic lesion or biliary ductal dilatation is present. The gallbladder has been surgically removed.?? PANCREAS: Unremarkable.?? SPLEEN: Unremarkable.?? ADRENAL GLANDS: Unremarkable.?? KIDNEYS AND URETERS: The kidneys are normal in size, shape, and attenuation. There is a 3 mm upper pole right kidney and a 3 mm lower pole left renal calculi without caliectasis or hydronephrosis.?? BLADDER: Unremarkable.?? GASTROINTESTINAL TRACT: There is diffuse colonic diverticulosis without diverticulitis. There is scattered stool and gas seen as well without distention. The appendix is normal caliber. The small bowel loops are nondistended and appears unremarkable. The stomach is unremarkable.?? ABDOMINAL WALL: Small umbilical hernia containing fat is noted.?? LYMPH NODES: Normal. VASCULAR: Unremarkable. PELVIC VISCERA: The uterus is anteverted and appears unremarkable. There is no free fluid. No adnexal mass or abnormal pelvic lymph nodes. OSSEOUS STRUCTURES: No aggressive lytic or sclerotic process seen.?? IMPRESSION: Diffuse colonic diverticulosis without diverticulitis. Bilateral nonobstructive radiopaque renal calculi Assessment & Plan Assessment & Plan Orders: Orders AMB Urinalysis Automated Today N20.0 - Calculus of kidney, R31.9 - Hematuria, unspecified, Z87.442 - Personal history of urinary calculi Coding
--- OUTSIDE RECORDS SUMMARY | 2025-02-25 12:50 | XMS_ITS | Clinical Summary ---
Author Organization [facility] Address [address] [place] [address] Phone Care Team Providers Care Resident Services Manager Name Role Phone Name, Joo SRIVASTAVA Primary Care Provider [phone] Surgical History Surgery Date Site/Laterality Comments OTHER SURGICAL HISTORY 12/10 PROCEDURE: MAMMOGRAM COLONOSCOPY 06/11 PROCEDURE: [place] COLONOSCOPY STOMA DX INCLUDING COLLJ SPEC SPX [...] Annual BMP Blood Test 07/17/2022 Depression Screening 08/01/2024 COVID-19 Vaccine ( season) 2024 04/23/2024, 06/29/2022, [...] patient's age to complete this topic Insurance [facility] Member Subscriber Plan / Payer (Ef fective 2022-Present) Name:Nayeli Echavarria Relation to Subscriber:Self Name:Nayeli Echavarria Payer ID:[id number] Group ID:[id number] Type:Not on file Address: [address] [place] [address] MEDICAID - [place] [employer] MEDICARE Member Subscriber Plan / Payer ( fective 2022-Present) Name:Nayeli Echavarria Relation to Subscriber:Self Name:Nayeli Echavarria Payer ID:[id number] Group ID:[id number] Type:Not on file Address: [address] [place] [address] Care Teams Resident Services Manager Relationship Specialty Start Date End Date Name, MD Joo [address] [place] [address] PCP - General Internal Medicine 06/06/24
--- OUTSIDE RECORDS SUMMARY | 2025-02-25 12:50 | XMS_ITS | Encounter Summary ---
Author Organization [employer] Address [address] [facility] [address] [place] [address] Care Team Providers Care Strapper Operator Name Role Phone Name, Joo SRIVASTAVA Primary Care Provider [phone] Encounter Details Date Type Department Care Team (Late st Contact Info) Description 08/12/2022 Telephone [facility] MEDICINE [address] [place] [phone] Joo Gupta MD [address] [place] [phone] Social History Tobacco Use Types Packs/Day Years [...] Description 04/04/2025 11:15 AM EDT Office Visit [facility] MEDICINE [address] [place] [phone] Joo Gupta MD [address] [place] [address] documented as of this encounter Visit Diagnoses Not on filedocumented in this encounter Care Teams Strapper Operator Relationship Specialty Start Date End Date Joo Gupta MD [address] [place] [address] PCP - General Family Medicine 04/23/22 documented as of this encounter
== END 2025-02-25 12:26 | disposition home or self-care (01) ==
LOC: HO.HUSH 11:34
PROVIDERS: PCP Internal Medicine Geriatric Medicine; Visit Provider Urology
DX: R31.9 Hematuria, unspecified (principal); Z87.442 Personal history of urinary calculi; N20.0 Calculus of kidney

== ENCOUNTER → 2025-02-25 11:34 | Outpatient (BNVA) | payer OTHER, SELFPAY | PROVIDERS: PCP Internal Medicine Geriatric Medicine; Visit Provider Urology | DX: N20.0 Calculus of kidney (principal) | CPT/HCPCS: 81003 ==

== ENCOUNTER 2025-05-06 08:47 | Outpatient (REF) | payer OTHER, SELFPAY ==
--- OUTSIDE RECORDS SUMMARY | 2025-05-06 09:32 | XMS_ITS | Encounter Summary ---
Author Organization [employer] Address [address] [facility] [address]t [place] [address] Care Team Providers Care Toe Closing Machine Tender Name Role Phone Name, Joo SRIVASTAVA Primary Care Provider [phone] Reason for Visit * Reason Onset Date Comments Lab Orders 10/26/2023 Appointment Request 10/26/2023 Encounter Details Date Type Department Care Team ([facility] Contact Info) Description 10/26/2023 Telephone [facility] MEDICINE [address] [place], [place] [phone] Name, MD Joo [address] [place], [place] [phone] Lab Orders; Appointment Request Social History Tobacco [...] documented as of this encounter Care Teams Toe Closing Machine Tender Relationship Specialty Start Date End Date Name, MD Joo [address] [place] [address] PCP - General Family Medicine 04/23/22 documented as of this encounter
--- OUTSIDE RECORDS SUMMARY | 2025-05-06 09:32 | XMS_ITS | Clinical Summary ---
Author Organization [facility] Address [address] [place] [address] Phone Care Team Providers Care Payroll Clerk Name Role Phone Name, Joo SRIVASTAVA Primary Care Provider [phone] Surgical History Surgery Date Site/Laterality Comments OTHER SURGICAL HISTORY 12/10 PROCEDURE: MAMMOGRAM COLONOSCOPY 06/11 PROCEDURE: [place] COLONOSCOPY STOMA DX INCLUDING COLLJ SPEC SPX [...] Health Maintenance Due Date Last Done Comments Colorectal Cancer Screening: Colonoscopy 1945 RSV Immunization Adult Patients (1 - 1-dose 75+ series) 2021 Zoster Vaccines (2 of 2) 03/10/2022 01/13/2022 Falls Risk Assessment 07/04/2022 Medicare Annual Wellness Visit 07/04/2022 Osteoporosis Screening (Bone Density Screening) 07/04/2022 Social Influencers of Health Screening 07/04/2022 Hypertension/CHF/CAD Annual BMP Blood Test 07/17/2022 Depression Screening 08/01/2024 COVID-19 Vaccine ( season) 2025 04/23/2024, 06/29/2022, 12/17/2021, Additional history exists Influenza [...] patient's age to complete this topic Insurance [facility] Member Subscriber Plan / Payer (Ef fective 2022-Present) Name:Nayeli Echavarria Relation to Subscriber:Self Name:Nayeli Echavarria Payer ID:[id number] Group ID:[id number] Type:Not on file Address: [address] [place] [address] MEDICAID - [place] [employer] MEDICARE Member Subscriber Plan / Payer ( fective 2022-Present) Name:Nayeli Echavarria Relation to Subscriber:Self Name:Nayeli Echavarria Payer ID:[id number] Group ID:[id number] Type:Not on file Address: [address] [place] [address] Care Teams Payroll Clerk Relationship Specialty Start Date End Date Name, MD Joo [address] [place] [address] PCP - General Internal Medicine 06/06/24
--- OUTSIDE RECORDS SUMMARY | 2025-05-06 09:32 | XMS_ITS | Encounter Summary ---
Author Organization [employer] Address [address] [facility] [address] [place] [address] Care Team Providers Care Venetian Blind Washer Name Role Phone Name, Joo SRIVASTAVA Primary Care Provider [phone] Reason for Visit * Reason Comments Med Refill Encounter Details Date Type Department Care Team ([facility] Contact Info) Description 02/19/2025 Refill [facility] MEDICINE [address] [place], [place] [phone] Name, MD Joo [address] [place] [address] Social History Tobacco Use Types Packs/Day Years [...] documented as of this encounter Care Teams Venetian Blind Washer Relationship Specialty Start Date End Date Name, MD Joo [address] [place] [address] PCP - General Family Medicine 04/23/22 documented as of this encounter
--- OUTSIDE RECORDS SUMMARY | 2025-05-06 09:32 | XMS_ITS | Encounter Summary ---
Author Organization [employer] Address [address] [facility] [address] [place] [address] Care Team Providers Care Garment Mender Name Role Phone Name, Joo SRIVASTAVA Primary Care Provider [phone] Reason for Visit * Reason Onset Date Comments Results 11/16/2023 Encounter Details Date Type Department Care Team ([facility] Contact Info) Description 11/16/2023 Telephone [facility] MEDICINE [address] [place], [place] [phone] Name, MD Joo [address] [place], [place] [phone] Results Social History Tobacco Use Types Packs/Day [...] T Spot Date when done: 10/30 Facility: [facility] Labs Pt is requesting labs result to be faxed over to program. If any questions you can contact pt at [phone]. Program- documented in this encounter Plan of Treatment Not on file documented as of this encounter Visit Diagnoses Not on filedocumented in this encounter Additional Health Concerns Assessment Noted Time PHQ-9 Depression Total Score: 6 11/10/19 23 11:33 AM EDT documented as of this encounter Care Teams Garment Mender Relationship Specialty Start Date End Date Name, MD Joo [address] [place] [address] PCP - General Family Medicine 04/23/22 documented as of this encounter
--- OUTSIDE RECORDS SUMMARY | 2025-05-06 09:32 | XMS_ITS | Clinical Summary ---
Author Organization [employer] Address [address] [facility] 7t [place] [address] Care Team Providers Care Yard Hostler Name Role Phone Name, Joo SRIVASTAVA Primary Care Provider [phone] Allergies No known active allergies Medications pyridoxine (Vitamin B-6) 100 MG tablet TAKE 1 TABLET BY MOUTH EVERYDAY 3 Active lisinopril 20 MG tablet TAKE 1 TABLET BY MOUTH EVERY DAY 90 tablet 1 5 Active atorvastatin (Lipitor) 20 MG tablet TAKE 1 TABLET BY MOUTH EVERY DAY 90 tablet 1 5 Active fluticasone (Flonase) 50 MCG/ACT nasal spray Administer 2 sprays into each nostril Once per day. Shake gently. Before first use, prime pump. After use, clean tip and replace cap. 16 g 2 5 04/04/20 26 Active Active Problems Problem Noted Date Diagnosed [...] Encounters Date Type Department Care Team Description 04/04/2025 11:15 AM EDT Office Visit [facility] MEDICINE [address] [place] [phone] Joo Gupta MD Essential hypertension (Primary Dx); Mixed hyperlipidemia; Age related osteoporosis, unspecified pathological fracture presence; Osteoarthritis of left knee, unspecified osteoarthritis type; Allergic rhinitis, unspecified seasonality, unspecified trigger 04/04/2025 Travel 04/03/2025 Telephone [facility]EDS [address] [place], [place] [phone] Joo Gupta MD Chart Prep 02/20/2025 Telephone [facility] [address] [place] [address] Joo Gupta MD Durable Medical Equipment 02/20/[address] [address] Joo Gupta MD Med Refill 02/19/[address] [address] Joo Gupta MD 02/07/2025 Orders Only [facility] External Provider, [facility] from Last 3 Months Immunizations Immunization Administration Dates Next Due Influenza High-dose Quadriva [...] housing situation today? I have min john 04/04/[address] you li ve. Do you have problems with any of the following? None of the above 04/04/2025 Food Insecurity Answer Date Recorded Within the past 12 months, y ou worried that your food would run out before you got money to buy more: Often true 2024 Within the past 12 months,th e food you bought just didn't last and you didn't have enough money to get more: Sometimes True 04/04/2025 Transportation Answer Date Recorded In the past 12 months, has l ack of transportation kept you from medical appts, meetings, work or from getting things needed for daily living? No 04/04/2025 Utilities Answer Date Recorded In the past 12 months, has t he electric, gas, oil or water company threatened to shut off services in your home? No 04/04/2025 Depression Answer Date Recorded Patient Health Questionnaire-2 Score 0 09/10/2024 Internet Access Answer Date Recorded Internet Access Q1 Yes 04/04/2025 Internet Access Q2 Not on file 04/04/2025 Comments Unknown Sex and Gender Information Value Date Recorded Sex Assigned at Female 05/31/2022 10:29 AM EDT Legal Sex Female 10:29 AM EDT Gender Identity Female 05/31/2022 10:29 AM EDT Sexual Orientation Straight 05/31/2022 10 :29 AM EDT Last Filed Vital Signs Vital Sign Reading Time Taken Comments Blood Pressure 146/82 04/04/2025 11:04 AM EDT Pulse 80 04/04/2025 11:04 AM EDT Temperature 36.1 C (96.9 F) 04/04/2025 11:04 AM EDT Respiratory Rate 14 04/04/2025 11:0 4 AM EDT Oxygen Saturation 96% 04/04/2025 11: 04 AM EDT Inhaled Oxygen Concentration - - Weight 69.8 kg (153 lb 12.8 oz) 025 11:04 AM EDT Height 144.8 cm (4' 9 ) 04/04/2025 11:0 4 AM EDT Body Mass Index 33.28 04/04/2025 11:04 AM EDT Plan of Treatment Health Maintenance Due Date Last Done Comments RSV Patients and Patients Aged 60 years or older (1 - 1-dose 75+ series) 2021 Zoster Vaccines (2 of 2) 03/10/2022 01/13/2022 COVID-19 Vaccine ( season) 2025 04/23/2024, 06/29/2022, 12/17/2021, Additional history exists Influenza Vaccine (#1) 2025 , 06/06/2023, 07/07/2021, Additional history exists Alcohol/Substance Use Screening 09/10/2025 09/10/2024 Depression Screening 09/10/2025 09/10/2024, 09/10/19 SDOH Screening 04/04/2026 04/04/2025 Tobacco Screening 04/04/2026 04/04/2025 Lipid Panel 01/22/2029 01/23/2024, 10/30, 04/09/2020 DTaP/Tdap/Td Vaccines (2 - Td or [...] Procedure Name Priority Date/Time Associated Diagnosis Comments POCT INFLUENZA B (ID NOW RAPID MOLECULAR) Routine 04/04/2025 11:47 AM EDT Allergic rhinitis, unspecified seasonality, unspecified trigger POCT INFLUENZA A (ID NOW RAPID MOLECULAR) Routine 04/04/2025 11:47 AM EDT Allergic rhinitis, unspecified seasonality, unspecified trigger POCT RAPID COVID ANTIGEN Routine 04/04/2025 11:47 AM EDT Allergic rhinitis, unspecified seasonality, unspecified trigger US RENAL COMPLETE Routine 02/08/2025 1:3 2 PM EDT HEPATITIS C AB W/REFL TO HCV RNA, QN, PCR Routine 01/23/2024 8:17 AM EDT Need for hepatitis C screening test LIPID PANEL, STANDARD Routine 01/23/2024 8:17 AM EDT Mixed hyperlipidemia from Last 3 Months or Most Recently Relevant to Health Maintenance Results * POCT Rapid Influenza B HERNÁNDEZ ID NOW (04/04/2025 11:47 AM EDT) Influenza B Negative Negative, Indeterminate [facility] QC Media Lot # [id number] [facility] Lot# Expiration Date [facility] Swab 04/04/2025 11:4 7 AM EDT us Joo Name POINT OF CARE TEST ENTER/EDIT OR DERABLES Final Result [facility] [address] [place] [address] [phone] * POCT Rapid Influenza A HERNÁNDEZ ID NOW (04/04/2025 11:47 AM EDT) Influenza A Negative Negative, Indeterminate [facility] QC Media Lot # [id number] [facility] Lot# Expiration Date [facility] Swab 04/04/2025 11:4 7 AM EDT us Joo Gupta MD POINT OF CARE TEST ENTER/EDIT OR DERABLES Final Result Performing Organization Address [facility] de Phone Number [facility] [address] [place] [phone] * POCT Rapid Covid-19 BinaxNOW (04/04/2025 11:47 AM EDT) Rapid COVID Ag Negative [facility] QC Media Lot # [id number] [facility] Lot# Expiration Date [address] [facility] Swab 04/04/2025 11:4 7 AM EDT us Joo Gupta MD POINT OF CARE TEST ENTER/EDIT OR DERABLES Final Result Performing Organization Address [facility] de Phone Number [facility] [address] [place] [phone] * US Renal Complete (02/08/2025 1:32 PM EDT) Anatomical Region Laterality Modality Kidney Ultrasound 02/08/2025 1:32 PM EDT Narrative 02/08/2025 1:34 PM EDT [address] [address] Ultrasound Report Signed Patient: Nayeli Echavarria MR#: [id number] : 1945 Acct:[id number] Age/Sex: 79 / F ADM Date: 02/07/25 Loc: HO.US Attending Dr: Mitzy Sutton MD Ordering Physician: Mitzy Sutton MD Date of Service: 02/07/25 Procedure(s): US renal BI Accession Number(s): [id number] cc: Mitzy Sutton MD; Name,Joo SRIVASTAVA CLINICAL HISTORY: Z87.442 - Personal history of urinary calculi US of kidneys Comparison: US/SR - US RENAL BI - 01/09/24 10:39 EDT Findings: Right renal lower pole and left renal upper pole are not well visualized due to limited acoustic window, allowing for the limitation: Right kidney is normal in size, echogenicity and morphology, 10.3 cm in length. Simple cysts 1.4 cm and 1.1 cm in the upper pole. No calculus or hydronephrosis. Left kidney is normal in size, echogenicity and morphology, 10.9 cm in length. 5 mm calculus at the lower interpolar region, not visualized before. Limited color Doppler demonstrates unremarkable bilateral blood flow. Impression: 1. Nonobstructing left nephrolithiasis. This document has been electronically signed by: Leonila Enamorado MD on 02/08/2025 13:32:48 Dictated By: Leonila Enamorado MD Signed By: <Electronically signed by Leonila Enamorado MD in OV> 02/08/25 1334 DD/ 1332 TD/TT: 02/08/25 133 Agency Cashier: Procedure Note Donotuseinterpreter, Image - 02/08/2025 [place] [address] Ultrasound Report Signed Patient: ePter Echavarria#: [id number] : 7Acct:[id number] Age/Sex: 79 / FADM Date: 02/07/25 Loc: HO.US Attending Dr: Mitzy Sutton MD Ordering Physician: Mitzy Sutton MD Date of Service: 02/07/25 Procedure(s): US renal BI Accession Number(s): [id number] cc: Mitzy Sutton MD; Name,Joo SRIVASTAVA CLINICAL HISTORY: Z87.442 - Personal history of urinary calculi US of kidneys Comparison: US/SR - US RENAL BI - 01/09/24 10:39 EDT Findings: Right renal lower pole and left renal upper pole are not well visualized due to limited acoustic window, allowing for the limitation: Right kidney is normal in size, echogenicity and morphology, 10.3 cm in length. Simple cysts 1.4 cm and 1.1 cm in the upper pole. No calculus or hydronephrosis. Left kidney is normal in size, echogenicity and morphology, 10.9 cm in length. 5 mm calculus at the lower interpolar region, not visualized before. Limited color Doppler demonstrates unremarkable bilateral blood flow. Impression: 1. Nonobstructing left nephrolithiasis. This document has been electronically signed by: Leonila Enamorado MD on 02/08/2025 13:32:48 Dictated By: Leonila Enamorado MD Signed By: <Electronically signed by Leonila Enamorado MD in OV> 02/08/25 1334 DD/ 133 TD/TT: 02/08/25 133 Agency Cashier: [facility] External Provider IMG US PROCEDURES Final Result * Hepatitis C Antibody with Reflex to HCV, RNA, Quantitative, Real-Time PCR (01/23/2024 8:17 AM EDT) Hepatitis C Antibody Nonreactive Nonreactive [facility] Comment:Antibodies to HCV no t detected; does not exclude early acuteHCV infection. Blood Venous blood specimen / Unknown 01/23/2024 8:17 AM EDT 01/23/2024 1:12 PM EDT Joo Gupta MD LAB BLOOD ORDERABLES Final Resul t [facility] [address] [place] [phone] * Lipid Panel, Standard (01/23/2024 8:17 AM EDT) Triglycerides 65 <150 mg/dL [facility] Comment:Desirable Triglyceri de: less than 150 mg/dLBorderline High Triglyceride 150-199 mg/dLHigh Triglyceride: 200-499 mg/dLVery High Triglyceride: greater than or equal to 5OO mg/dL Cholesterol 165 <200 mg/dL [facility] Comment:Desirable Cholestero l: less than 200 mg/dLBorderline High Cholesterol: 200-239 mg/dLHigh Cholesterol: greater than 239 mg/dL LDL Cholesterol Calculated 92 <100 mg/dL [facility] Comment:Desirable LDL: less than 100 mg/dLNear Optimal/Above Optimal LDL: 110- 129 mg/dLBorderline High LDL: 130-159 mg/dLHigh LDL: 160-189 mg/dLVery High LDL: greater than or equal to 190 mg/dL HDL Cholesterol 60 >40 mg/dL [facility] Comment:Desirable HDL: great er than 40 mg/dL Note: This HDL assay may give artificially low results in patients with liver disease. Blood Venous blood specimen / Unknown 01/23/2024 8:17 AM EDT 01/23/2024 1:12 PM EDT us Joo Gupta MD LAB BLOOD ORDERABLES Final Resul t [facility] [address] [place] [phone] from Last 3 Months or Most Recently Relevant to Health Maintenance Insurance [facility] STANDARD [facility] NURSING [facility] OPTIONS (HMO D-SNP) Care Teams Yard Hostler Relationship Specialty Start Date End Date Name, MD Joo [address] [place] [phone] PCP - General Family Medicine 04/23/22
--- OUTSIDE RECORDS SUMMARY | 2025-05-06 09:32 | XMS_ITS | Encounter Summary ---
Author Organization [employer] Address [address] [facility] 7t [place] [address] Care Team Providers Care Instructor Extension Work Name Role Phone Name, Joo SRIVASTAVA Primary Care Provider [phone] Reason for Visit * Reason Comments Med Refill Encounter Details Date Type Department Care Team ([facility] st Contact Info) Description 08/17/2024 Refill [facility] MEDICINE [address] [place], [place] [phone] Name, MD Joo [address] [place], [place] [phone] Social History Tobacco Use Types Packs/Day Years [...] documented as of this encounter Care Teams Instructor Extension Work Relationship Specialty Start Date End Date Name, MD Joo [address] [place] [address] PCP - General Family Medicine 04/23/22 documented as of this encounter
--- OUTSIDE RECORDS SUMMARY | 2025-05-06 09:32 | XMS_ITS | Encounter Summary ---
Author Organization [employer] Address [address] [facility] 7t [place] [address] Care Team Providers Care Miniature Model Maker Name Role Phone Name, Joo SRIVASTAVA Primary Care Provider [phone] Encounter Details Date Type Department Care Team (Late st Contact Info) Description 08/12/2022 Telephone [facility] MEDICINE [address] [place], [place] [phone] Name, MD Joo [address] [place] [address] [phone] Social History Tobacco Use Types Packs/Day Years [...] on filedocumented in this encounter Care Teams Miniature Model Maker Relationship Specialty Start Date End Date Name, MD Joo [address] [place] [address] [phone] PCP - General Family Medicine 04/23/22 documented as of this encounter
--- OUTSIDE RECORDS SUMMARY | 2025-05-06 09:32 | XMS_ITS | Encounter Summary ---
Author Organization [employer] Address [address] [facility] 7t [place] [address] Care Team Providers Care Clean Room Assembler Name Role Phone Name, Joo SRIVASTAVA Primary Care Provider [phone] Encounter Details Date Type Department Care Team (Late st Contact Info) Description 08/16/2023 Telephone [facility] MEDICINE [address] [place], [place] [phone] Name, MD Joo [address] [place], [place] [phone] Social History Tobacco Use Types Packs/Day Years [...] documented as of this encounter Care Teams Clean Room Assembler Relationship Specialty Start Date End Date Name, MD Joo [address] [place] [address] PCP - General Family Medicine 04/23/22 documented as of this encounter
--- OUTSIDE RECORDS SUMMARY | 2025-05-06 09:32 | XMS_ITS | Encounter Summary ---
Author Organization [employer] Address [address] [facility] 7t [place] [address] Care Team Providers Care Metrologist Name Role Phone Name, Joo SRIVASTAVA Primary Care Provider Reason for Visit * Reason Onset Date Comments Nurse Triage 02/04/2023 Encounter Details Date Type Department Care Team ([facility] st Contact Info) Description 02/04/2023 Telephone [facility] MEDICINE [address] [place], [place] [phone] Name, MD Joo [address] [place] [address] Nurse Triage Social History Tobacco Use Types [...] 02/04/2023 10:11 AM EDT Triage call with Prepared Response Photo Retoucher ID [id number] and [phone] Pt reports concern about urinary symptoms and [...] discomfort can be seen by provider in [facility] while waiting for apt with PCP [...] become worse. * Telephone Encounter - Patricia Spnece - 02/04/2023 9:14 AM EDT Symptom: Hip Pain - Not From Injury Outcome: Schedule an urgent appointment (within 1 hour) or talk to a nurse or provider soon Reason: Severe pain now The caller accepted this outcome Please contact pt at [phone] (Vincentian speaker) documented in this encounter Plan of Treatment Not on file documented as of this encounter Visit Diagnoses Not on filedocumented in this encounter Additional Health Concerns Assessment Noted Time PHQ-9 Depression Total Score: 6 11/10/19 23 11:33 AM EDT documented as of this encounter Care Teams Metrologist Relationship Specialty Start Date End Date Name, MD Joo [address] [place] [address] PCP - General Family Medicine 04/23/22 documented as of this encounter
--- OUTSIDE RECORDS SUMMARY | 2025-05-06 09:32 | XMS_ITS | Encounter Summary ---
Author Organization [employer] Address [address] [facility] 7t [place] [address] Care Team Providers Care Multifocal Button Grinder Name Role Phone Name, Joo SRIVASTAVA Primary Care Provider [phone] Reason for Visit * Reason Onset Date Comments Reschedule 08/24/2023 Encounter Details Date Type Department Care Team ([facility] Contact Info) Description 08/24/2023 Telephone [facility] MEDICINE [address] [place], [place] [phone] Name, MD Joo [address] [place] [address] Reschedule Social History Tobacco Use Types Packs/Day [...] t he electric, gas, oil or water [employer] threatened to shut off services in your [...] documented as of this encounter Care Teams Multifocal Button Grinder Relationship Specialty Start Date End Date Name, MD Joo [address] [place] [address] PCP - General Family Medicine 04/23/22 documented as of this encounter
--- OUTSIDE RECORDS SUMMARY | 2025-05-06 09:32 | XMS_ITS | Encounter Summary ---
Author Organization [employer] Address [address] [facility] 7t [place] [address] Care Team Providers Care Property And Equipment Clerk Name Role Phone Name, Joo SRIVASTAVA Primary Care Provider [phone] Reason for Visit * Reason Onset Date Comments Med Refill 02/20/2025 Encounter Details Date Type Department Care Team ([facility] Contact Info) Description 02/20/2025 Telephone [facility] MEDICINE [address] [place], [place] [phone] Name, MD Joo [address] [place] [address] Med Refill Social History Tobacco Use Types Packs/Day Years [...] encounter Miscellaneous Notes * Telephone Encounter - Nancy Asher LPN - 02/20/2025 1:22 PM EDT Medications are to soon for refill. Scripts sent on 11/22/24 and 11/16/24 #90 with 1 refill. * Telephone Encounter - Joo Cordova - 02/20/2025 1:16 PM EDT TC from pt requesting medication refill. Medications needing refill : lisinopril 20 MG tablet atorvastatin (Lipitor) 20 MG tablet To be sent to: [id number] - [place] - 1 REPLACED BY [facility] OF REPLACED BY [facility] JAVID documented in this encounter Plan of Treatment Not on file documented as of this encounter Visit Diagnoses Not on filedocumented in this encounter Additional Health Concerns Assessment Noted Time PHQ-9 Depression Total Score: 3 09/10/19 25 9:58 AM EST documented as of this encounter Care Teams Property And Equipment Clerk Relationship Specialty Start Date End Date Name, MD Joo [address] [place] [address] PCP - General Family Medicine 04/23/22 documented as of this encounter
[2025-05-06 15:20] LABS: Alanine Aminotransferase 17 U/L (0-31); Albumin Level 4.3 g/dL (3.5-5.0); Alkaline Phosphatase 79 U/L (39-117); Anion Gap 8 (12-20); Aspartate Amino Transferase 23 U/L (5-31); Blood Urea Nitrogen 21 mg/dL (9-16); Calcium 9.7 mg/dL (8.4-10.2); Carbon Dioxide 30 mmol/L (22-29); Chloride 108 mmol/L (96-108); Cholesterol 161 mg/dL (<200); Estimated Glomerular Filt Rate > 60; HDL Cholesterol 53 mg/dL (>40); Potassium 4.0 mmol/L (3.3-5.1); Sodium 142 mmol/L (135-145); Total Protein 6.8 g/dL (6.5-8.0); Triglycerides 82 mg/dL (<150)
== END 2025-05-06 08:48 | disposition home or self-care (01) ==
LOC: HO.CHCLDS 08:47
PROVIDERS: Visit Provider Internal Medicine Geriatric Medicine
DX: M81.0 Age-related osteoporosis without current pathological fracture (principal); E78.2 Mixed hyperlipidemia; I10 Essential (primary) hypertension
CPT/HCPCS: 36415; 80053; 80061; 82306

== ENCOUNTER 2025-05-20 09:55 | Outpatient (REF) | payer OTHER, SELFPAY ==
--- NOTE | ~2025-05-20 | MM_ITS ---
EXAMINATION: DXA BONE DENSITY AXIAL HISTORY: osteoporosis TECHNIQUE: [employer] Dual energy absorptiometry (DEXA) of the lumbar spine, total left hip, and femoral neck was performed. COMPARISON: Comparison is made with the prior examination dated 03/18/2023. FINDINGS: The bone mineral density of the lumbar spine is 0.971 g/cm2, corresponding to a T-score of -1.7, and a Z-score of -0.1. This is indicative of osteopenia. This represents a BMD change of 3.4% compared to the prior exam. This is statistically significant. The bone mineral density of the left total hip is 0.738 g/cm2, corresponding to a T-score of -2.1, and a Z-score of -0.3. This is indicative of osteopenia. This represents a BMD change of -7.4% compared to the prior exam. This is statistically significant. The bone mineral density of the left femoral neck is 0.631 g/cm2, corresponding to a T-score of -2.9, and a Z-score of -0.9. This is indicative of osteoporosis. This represents a BMD change of -9.3% compared to the prior exam. MM/XR DEXA axial skeleton IMPRESSION: Based on bone mineral density, and according to World Health Organization (WHO) criteria, the diagnosis is consistent with osteoporosis. Statistically, 68% of repeat scans fall within 1 SD (+/- 0.010 g/cm2 for AP spine L1-L4) and 1 SD (+/- 0.012 g/cm2 for femur total) [employer] is a trademark of the [employer]'s [place] for Metabolic Bone Disease, a World Health Organization (WHO) Collaborating Center. Electronically signed by: Lowell Bateman MD 05/20/2025 10:21 AM EDT
== END 2025-05-20 09:56 | disposition home or self-care (01) ==
LOC: HO.MAMMO 09:55
PROVIDERS: PCP Internal Medicine Geriatric Medicine; Visit Provider Internal Medicine Geriatric Medicine
DX: M81.0 Age-related osteoporosis without current pathological fracture (principal)
CPT/HCPCS: 77080

== ENCOUNTER → 2025-05-20 10:00 | Outpatient (BNV) | payer OTHER, SELFPAY | PROVIDERS: PCP Internal Medicine Geriatric Medicine; Visit Provider Radiology Diagnostic Radiology | DX: E28.39 Other primary ovarian failure (principal) | CPT/HCPCS: 77080 ==